=== PATIENT | female | born 1965 | race Caucasian/White ===

== ENCOUNTER → 2017-11-04 13:19 | Outpatient (CLI) | payer MEDICARE, MEDICAID, SELFPAY | PROVIDERS: Family Provider Family Medicine; PCP Family Medicine; Visit Provider Physician Assistant Surgical | DX: R06.02 Shortness of breath (principal) | CPT/HCPCS: 71046 ==

== ENCOUNTER 2018-05-23 10:31 | Emergency (ER) | payer MEDICARE, MEDICAID, SELFPAY ==
[2018-05-23 10:32] VITALS: BP 137/92; PULSE 58; RESP 16; TEMP 36.4; O2SAT 100; BMI 31.6
--- NOTE | 2018-05-23 10:57 | RAD_ITS ---
STUDY: X-RAY - RIGHT HIP REASON FOR EXAM: Female, 52 years old. Pain. TECHNIQUE: 3 views of the hip. COMPARISON: None. FINDINGS: Normal femoral head, neck, intertrochanteric region and visualized proximal femur. Normal acetabulum. Normal hip joint. Normal visualized superior and inferior pubic rami and ischial tuberosities. There is no demonstrated hip fracture. RAD/HIP, UNI W/ Pelvis 2-3 Views IMPRESSION: Normal x-ray examination of the hip. Electronically Signed: Yaw Eckert MD at 12:31 EDT , Service support ,
--- NOTE | 2018-05-23 11:00 | ED.VISSUMM ---
- ER Visit Summary Date of Service: 05/23/18 Chief Complaint: Right leg pain History of Present Illness: The patient is a 52 F who had a mechanical fall on a wet floor 1 week ago. She had right leg pain that improved throughout the week. This morning she woke with worsening pain shooting from her hip down to her foot. Physical Examination: Vital signs unremarkable. Patient lying in bed. She appears uncomfortable but in no distress. Head neck examination was no trauma. Heart is regular rate and rhythm. Lungs sounds clear. Abdomen is soft and nontender. Back examination reveals no midline thoracic or lumbar reducible tenderness over the right posterior pelvis near the sciatic notch. She has no focal thigh or calf tenderness on palpation. She is strong distal pulses and normal sensation. There is no pain at the hip with logroll. Test Results: Pelvis and right hip x-rays are unremarkable. Emergency Department Course and Treatment: Patient was given oxycodone, prednisone, and naproxen. On repeat evaluation she is resting more comfortably. Test results were discussed with patient and family at bedside. I believe her symptoms are secondary to sciatica. She will be given prescriptions for the same medications given here. Treatment Plan: [] Disposition: Discharge Impression: Sciatica This note was generated with [employer] dictation software. It may contain incorrect words, spelling, and punctuation that were not noted in review of the chart prior to signing ED Disposition - Plan for ED Patient: Referrals: Keith Aiken DO [STAFF PHYSICIAN] -
[2018-05-23] MEDS: predniSONE 20 MG Tablet 60 MG PO (11:10)
[2018-05-23] MEDS: Naproxen 500 MG Tablet PO (11:10)
[2018-05-23] MEDS: oxyCODONE 5 MG Tablet PO ×2 (11:10→12:20)
--- NOTE | 2018-05-23 12:52 | ED.DEP ---
ED Disposition - Plan for ED Patient: Disposition: Home or Assisted Living Instructions: ED Sciatica Prescriptions: Oxycodone HCl/Acetaminophen [Percocet 5/325] 1 tablet PO Q6H PRN PRN 3 Days #12 tablet PRN Reason: Pain Naproxen [Naprosyn] 500 mg PO BID PRN PRN #20 tablet PRN Reason: Pain Prednisone 10 mg PO UD #33 tablet Referrals: Keith Aiken DO [STAFF PHYSICIAN] - 1 Week
[2018-05-23 13:03] VITALS: BP 142/72; PULSE 57; RESP 16; O2SAT 96
--- NOTE | 2018-05-23 13:03 | ED.RN ---
DISCHARGE INSTRUCTIONS GIVEN TO AND REVIEWED WITH PATIENT AND FAMILY, ALL DENY QUESTIONS OR CONCERNS AND VOICE UNDERSTANDING OF DISCHARGE INSTRUCTIONS. PT AMBULATES OUT OF ROOM WITH STEADY GAIT.
== END 2018-05-23 13:04 | disposition home or self-care (01) ==
PROVIDERS: Emergency Provider Emergency Medicine
DX: M54.31 Sciatica, right side (principal)
CPT/HCPCS: 73502; 99284

== ENCOUNTER → 2018-07-03 | Outpatient (CLI) | payer MEDICARE, MEDICAID, SELFPAY | END | disposition home or self-care (01) | LOC: LABSPEC 12:43 | PROVIDERS: Referring Provider Family Medicine; Visit Provider Family Medicine | DX: R35.0 Frequency of micturition (principal) | CPT/HCPCS: 87086; 87088 ==

== ENCOUNTER → 2018-09-11 | Outpatient (CLI) | payer MEDICARE, MEDICAID, SELFPAY ==
[2018-09-11 12:51] LABS: Absolute Lymphocyte Count 1.82 X10^3/ul (0.83-4.51); Absolute Neutrophil Count 2.8 X10^3/uL (2.0-7.7); Basophil# 0.03 X10^3/uL; Basophil% 0.6 % (0-1); Eosinophils% 1.9 % (0-5); Hematocrit 38.4 % (37-47); Hemoglobin 12.9 g/dl (12.0-15.0); Lymphocyte # 1.82 X10^3/ul (4.0); Lymphocyte % 35.1 % (19-41); Mean Corp Hgb Conc 33.6 g/gl (32-36); Mean Corpuscular Hgb 30.9 pg (27.0-32.0); Mean Corpuscular Volume 92.1 fL (81-99); Mean Platelet Vol. 13.4 fl (6.2-12.0); Monocyte# 0.45 X10^3/uL; Monocyte% 8.7 % (0-10); Neutrophil # 2.79 X10^3/uL (2.7-7.7); Neutrophil % 53.7 % (47-70); Platelet Count 259 K/mm3 (150-450); RBC Distribution Width CV 13.2 % (11.6-14.6); RBC Distribution Width SD 43.3 fl (35.1-43.9); Red Blood Count 4.17 M/mm3 (4.2-5.4); White Blood Count 5.2 K/mm3 (4.4-11.0)
[2018-09-11 12:53] LABS: POSITIVE COUNT NO; POSITIVE DIFFERENTIAL NO; POSITIVE MORPHOLOGY NO
[2018-09-15 12:29] LABS: Anti-Thyroglobulin AB < 1.0 IU/mL (0.0-0.9); Thyroglobulin, Serum Qt. 186.8 ng/mL (1.5-38.5); Thyroid Peroxidase AB 178 IU/mL (0-34)
== END | disposition home or self-care (01) ==
LOC: MFPLAB 09:40
PROVIDERS: Visit Provider Family Medicine
DX: Z00.00 Encounter for general adult medical examination without abnormal findings (principal); E01.0 Iodine-deficiency related diffuse (endemic) goiter
CPT/HCPCS: 36415; 80053; 80061; 84432; 84439; 84443; 85025; 86376; 86800

== ENCOUNTER → 2018-09-15 | Outpatient (CLI) | payer MEDICARE, MEDICAID, SELFPAY ==
--- NOTE | 2018-09-15 14:55 | US_ITS ---
STUDY: THYROID ULTRASOUND REASON FOR EXAM: Female, 52 years old. Thyromegaly TECHNIQUE: Ultrasound evaluation of the thyroid was performed with real-time and static hendrickson-scale imaging. COMPARISON: None. FINDINGS: Increased vascularity throughout. RIGHT LOBE: The right lobe of the thyroid gland measures 5 x 2.1 x 2.2 cm. There is a heterogeneous echotexture. 3 complex nodules are noted measuring 1.1 x 0.6 x 0.7, 2 x 1.3 x 1.1, and 0.5 x 0.4 x 0.5 cm. LEFT LOBE: The left lobe of the thyroid gland measures 4.5 x 1.7 x 2 cm. There is a heterogeneous echotexture. Complex nodule extending into the isthmus measures 3.1 x 2.4 x 1.7 cm. ISTHMUS: The isthmus measures 0.5 cm. Nodule on the left measured 1 x 1 x 0.7 cm.. The regional lymph nodes are normal. US/Thyroid IMPRESSION: Multinodular goiter with a complex dominant nodule noted on the left. Recommend nuclear medicine for further characterization. Electronically Signed: Deny Zarate MD at 23:04 EDT , Service support ,
== END | disposition home or self-care (01) ==
LOC: US 14:34
PROVIDERS: Family Provider Family Medicine; PCP Family Medicine; Referring Provider Family Medicine; Visit Provider Family Medicine
DX: E01.0 Iodine-deficiency related diffuse (endemic) goiter (principal)
CPT/HCPCS: 76536

== ENCOUNTER → 2018-09-22 | Outpatient (CLI) | payer MEDICARE, MEDICAID, SELFPAY ==
--- NOTE | 2018-09-22 15:51 | BI_ITS ---
MAMMOGRAPHY - BILATERAL SCREENING 3-D TOMOSYNTHESIS REASON FOR EXAM: Female, 52 years old. Bilateral Screening 3-D tomosynthesis PERTINENT HISTORY: No significant family history. TECHNIQUE: 2-D mammograms and 3-D Tomosynthesis of the breast (s) were performed. CAD was performed. COMPARISON: None. FINDINGS: The breast composition is composed of scattered fibroglandular density. Scattered benign calcifications are seen. No dense spiculated masses or suspicious microcalcifications are identified. No architectural distortion is identified. There is no skin thickening or retraction. Scattered well-defined nodular densities in the right breast likely lymph nodes or fibroadenomas. Bilateral well-defined axillary lymphadenopathy. BI/SCREEN MAMM (CAD) W/EDUAR BILAT IMPRESSION: No mammographic signs of malignancy. Routine yearly mammograms recommended. ASSESSMENT CATEGORY: BIRADS Category 1: Negative. A letter regarding these results will be sent to the patient by the facility within 30 days. FOLLOW UP RECOMMENDATION: Yearly follow up mammogram recommended. (A) Approximately 10% of breast cancers are not detected by mammography. A normal mammogram should not delay biopsy of a clinically suspicious abnormality. Electronically Signed: Dwaine Najera MD at 7:51 EDT , Service support ,
== END | disposition home or self-care (01) ==
LOC: OPBI 15:49
PROVIDERS: Family Provider Family Medicine; PCP Family Medicine; Referring Provider Family Medicine; Visit Provider Family Medicine
DX: Z12.31 Encounter for screening mammogram for malignant neoplasm of breast (principal); Z00.00 Encounter for general adult medical examination without abnormal findings; E06.3 Autoimmune thyroiditis; E01.0 Iodine-deficiency related diffuse (endemic) goiter
CPT/HCPCS: 77063; 77067; 80053; 80061; 84439; 84443

== ENCOUNTER → 2018-09-22 | Outpatient (CLI) | payer MEDICARE, MEDICAID, SELFPAY ==
[2018-09-22 18:35] LABS: ALB/GLOB Ratio 1.1 RATIO (0.9-2.4); AST(SGOT) 18 U/L (15-37); Alanine Aminotransfer ALT/SGPT 21 U/L (13-56); Albumin, Serum 3.9 g/dL (3.2-5.0); Alkaline Phosphatase 69 U/L (45-117); Anion Gap 8 (5-15); BUN 16 mg/dL (7-18); BUN/Creat Ratio 20.1 RATIO (10-20); Calcium,Total 8.8 mg/dL (8.5-10.1); Chloride 105 mmol/L (98-107); Cholesterol 212 mg/dL (200); EST Glomerular Filtration Rate 80 mL/min (>60); Est Glom Filt Rate - Afr Amer 97 mL/min (>60); Globulin 3.6 g/dL (2.2-4.2); Glucose 99 mg/dL (74-106); High Density Lipoprotein 47 mg/dL; Potassium 3.7 mmol/L (3.5-5.1); Protein, Total 7.5 g/dL (6.4-8.2); Sodium Level 140 mmol/L (136-145); T4 Free Direct 0.67 ng/dL (0.76-1.46); Thyroid Stim Hormone (TSH) 2.11 uIU/mL (0.358-3.74); Triglycerides 199 mg/dL; Very Low Density Lipoprotein 40 mg/dL (5-40)
== END | disposition home or self-care (01) ==
LOC: MFPLAB 14:56
PROVIDERS: Family Provider Family Medicine; PCP Family Medicine; Referring Provider Family Medicine; Visit Provider Family Medicine
DX: Z00.00 Encounter for general adult medical examination without abnormal findings (principal); E06.3 Autoimmune thyroiditis; E01.0 Iodine-deficiency related diffuse (endemic) goiter
CPT/HCPCS: 80053; 80061; 84439; 84443

== ENCOUNTER → 2018-09-30 | Outpatient (CLI) | payer MEDICARE, MEDICAID, SELFPAY ==
--- NOTE | 2018-09-30 14:15 | ASPS_PTH ---
PATIENT: CODY NORTON LOC: [facility] U#:[id number] AGE/SX: 52/F ROOM: RE09/30/[address]: Dr. Jeromy Martins MD : 1965 BED: DIS: 09/30/2018 SPEC #: [id number] RECD: 10/01/18 08:38 STATUS: KAYLA RADHA #: [id number] KRYSTA: 09/30/18 14:[address]: Jeromy Martins DEPT: CYTOLOGY RECD BY: Wisam Flores ENTERED: 10/01/18 09:31 SP TYPE: ASPIRATION OTHR DR: Dr. Nilesh Doan MD Tissues: A - Thyroid gland, NOS B - Thyroid gland, NOS Procedures: Special Stain Group II Cytology Other HEADER OPERATION: Ultrasound-guided fine needle aspiration bilateral thyroid PRE-OP DIAGNOSIS: Multinodular goiter E04.2 TISSUE SUBMITTED: A - Fine needle aspiration right thyroid (10 slides), B - Fine needle aspiration left thyroid (12 slides) DIAGNOSIS CYTOLOGY A. Fine needle aspiration, right thyroid nodule (smears): Malignant cells consistent with papillary carcinoma. Chronic lymphocytic thyroiditis. B. 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 Abundant colloid consistent with colloid nodule Chronic lymphocytic thyroiditis. AM:jourdan 10/02/18 COMMENT Case has been reviewed in consultation with Dr. Medina who concurs with the above diagnosis. IDC:SJ CYTOLOGY STUDY Slides are reviewed. CYTOLOGY GROSS A - Received are 10 smears labeled with the patient's name and designated per the requisition as FNA right thyroid. Submitted for staining. B - Received are 12 smears labeled with the patient's name and designated per the requisition as FNA left thyroid. Submitted for staining. 10/01/18 TC:0 CPT: 57134 x2
[2018-09-30 14:23] VITALS: BMI 31.6
== END | disposition home or self-care (01) ==
LOC: LABSPEC 10-01 08:44
PROVIDERS: Family Provider Family Medicine; PCP Family Medicine; Referring Provider Surgery; Visit Provider Surgery
DX: E06.3 Autoimmune thyroiditis (principal); E04.2 Nontoxic multinodular goiter
CPT/HCPCS: 88161; 88313

== ENCOUNTER 2018-10-22 05:33 | Day surgery (SDC) | payer MEDICARE, MEDICAID, SELFPAY ==
[2018-10-07 13:44] VITALS: BMI 31.6
--- NOTE | 2018-10-08 09:50 | HP_ITS ---
Intake Vital Signs 10/07/18 Body Mass Index (BMI) 31.6 10/07/18 Height 5 ft 4 in 10/07/18 Weight: 178 lb 10/07/18 Body Mass Index (BMI) 30.5 10/07/18 Blood Pressure 120/79 10/07/18 Blood Pressure Location Rt brachial 10/07/18 Blood Pressure Position Sitting 10/07/18 Respiratory Rate 18 10/07/18 Pulse Rate 52 L 10/07/18 Pulse Source Monitor 10/07/18 Temperature 98.3 F 10/07/18 Temperature Source Oral 10/07/18 Pulse Ox 93 10/07/18 Oxygen Delivery Method room air 09/30/18 Body Mass Index (BMI) 31.6 Intake Visit Reasons: FNA Bilat Thyroid Results Chief Complaint: cough Cider Press Operator Required: No Is patient in pain?: No Allergies acetaminophen [From Vicodin] Allergy (Mild, Verified 10/07/18 13:44) unknown hydrocodone [From Vicodin] Allergy (Mild, Verified 10/07/18 13:44) unknown sulfamethoxazole [From Bactrim] Allergy (Unknown, Verified 10/07/18 13:44) Unknown trimethoprim [From Bactrim] Allergy (Unknown, Verified 10/07/18 13:44) Unknown Medications Naproxen [Naprosyn] 500 mg PO BID PRN PRN #20 tab 05/23/18 [Rx Confirmed 10/07/18] Prednisone 10 mg PO UD #33 tab 05/23/18 [Rx Confirmed 10/07/18] biotin 1 mg capsule 1 mg PO DAILY 09/24/18 [History Confirmed 10/07/18] cetirizine 10 mg capsule 10 mg PO DAILY 09/24/18 [History Confirmed 10/07/18] lorazepam 0.5 mg tablet 1 mg PO ONCE #2 tab 09/24/18 [Rx Confirmed 10/07/18] oxybutynin chloride 5 mg tablet 5 mg PO DAILY 09/24/18 [History Confirmed 10/07/18] PFSH Medical History Thyroid nodule (Acute) Surgical History Hx of tonsillectomy (Acute) History of appendectomy (Acute) History of hysterectomy (Acute) History of cholecystectomy (Acute) Family History Mother Arthritis Hypertension High cholesterol Father Diabetes Heart disease Hypertension Sister Thyroid disorder Social History (Updated 10/08/18 @ 09:51 by Jeromy Martins MD) Smoking Status: Never smoker alcohol intake: never substance use type: does not use caffeine: Yes what type of physical activity do you participate in: swimming frequency: 1-2 times per week HPI HPI HPI: CODY NORTON, is a 52 F who presents to the office today for HPI HPI Surgical H&P: Yes HPI: CODY NORTON, is a 52 F who presents to the office today for Follow-up from a ultrasound-guided fine-needle aspiration of bilateral thyroid nodules. Her fine-needle aspiration results show that she had papillary thyroid cancer on the right side. Patient had her thyroid ultrasound completed at [facility] on 09/15/2018. This showed a 1.1 cm nodule on the right side and a 3.1 cm nodule on the left side. She has not had any pain or discomfort in her neck she has had no previous history of thyroid issues in the past. ROS General General: No weight change, appetite, fatigue, colon cancer, breast cancer or weakness HEENT HEENT: No difficulty swallowing, eye injury, eye surgery, swollen glands or hoarseness Endo Endocrine: No thyroid disease, diabetes mellitus, thyroid cancer, Hair loss, heat intolerance or cold intolerance Skin Skin: No rash or changing moles Musc Musculoskeletal: No back problems, arthritis, rheumatoid arthritis, gout or joint pain Cardio Cardiovascular: No murmur, pacemaker, heart disease, atrial fibrillation, high blood pressure, heart attack, heart stent, palpitations, shortness of breat with exertion or chest pain Psych Psychiatric: No depression, anxiety or hearing voices Resp Respiratory: No shortness of breath, No sleep apnea, No cough, No COPD, No asthma, No emphysema, No wheezing Gastro Gastrointestinal: No abdominal pain, No nausea or vomiting, No diarrhea, No constipation, No blood in stool, No acid reflux, No hemorrhoids, No ulcers, No gallbladder problem, No black,tarry stools Neno Hematologic: No blood thinners, No blood disorders, No bleeding, No anemia, No blood clots Neuro Neurologic: No weakness Exam Const General: no acute distress, well developed, well hydrated Orientation: oriented to person, oriented to place, oriented to time [facility] Head: normocephalic, atraumatic Ears: external ears normal Mouth: moist mucous membranes Other: Thyroid Exam: No hard palpable nodules are identified.No lymphadenopathy is identified. Eyes Sclera: sclerae normal Pupils: normal by confrontation Neck Neck: no lymphadenopathy noted Neck mass: No Thyroid: thyroid normal, symmetrical Chest Chest palpation & inspection: normal inspection of the chest Resp Effort & Inspection: normal respiratory effort Auscultation: clear to auscultation bilaterally Percussion: percussion normal Cardio Rate: regular rate Rhythm: regular rhythm Heart Sounds: no murmurs GI Palpation: soft, no hepatosplenomegaly, no masses, nontender Rectal Exam: other Other: Rectal exam deferred. Extrem General: normal to inspection, no clubbing, cyanosis or edema Assessment & Plan Problems 1. Papillary thyroid carcinoma C73 Plan Patient will need to undergo a total thyroidectomy.Risk benefits to include injury to the parathyroid glands recurrent laryngeal nerves were discussed in great detail.Postoperative hemorrhage blood clots heart attacks pneumonia strokes were also discussed. Patient understood her risk and is willing to proceed. Coding Level of Care Code Off vis,est,level 3 Diagnoses Papillary thyroid carcinoma C73 10/08/18 0951 <Electronically signed by Jeromy sharif MD> Date _ Jeromy Martins MD I have re-examined the patient. There are no clinical changes since date of exam.
--- NOTE | 2018-10-15 16:33 | EKG12_ITS ---
Test Reason : PRE OP Blood Pressure : / mmHG Vent. Rate : 053 BPM Atrial Rate : 053 BPM P-R Int : 162 ms QRS Dur : 092 ms QT Int : 432 ms P-R-T Axes : 023 030 018 degrees QTc Int : 405 ms Sinus bradycardia with occasional Premature ventricular complexes Otherwise normal ECG Confirmed by ALEXIS ORTIZ, SHAISTA ([id number]), map editor SANTHOSH BEAR ([id number]) on 10/19/2018 1:34:19 PM Referred By: Jeromy Martins Confirmed By:RICKIE ESPINOZA MD
[2018-10-22] VITALS (12 sets, daily range): BP systolic 102–134; BP diastolic 44–65; PULSE 41–66; RESP 14–18; TEMP 36.1–37.2; O2SAT 94–100; BMI 31.1
--- NOTE | 2018-10-22 | IMM_PTH ---
PATIENT: CODY NORTON [place] [facility] [id number] AGE/SX: 52/F ROOM: RE10/22/[address]: Dr. Jeromy Martins MD : 1965 BED: DIS: 10/23/2018 SPEC #: [id number] RECD: 10/27/18 07:42 STATUS: KAYLA REMookie #: [id number] KRYSTA: 10/22/18 00:[address]: Jeromy Martins DEPT: IMMUNOHISTOCHEMISTRY RECD BY: Mariel Miranda ENTERED: 10/27/18 07:44 SP TYPE: IMMUNO OTHR DR: MD Dr. Nilesh Small MD Tissues: A - Thyroid gland, NOS B - Lymph node, NOS Procedures: Thyroglobulin (add) CK19 (add) GAL-3 (add) HBME (add) CD56 (initial) PHYSICIAN & INSTITUTION [address] [address] SPECIMEN INFORMATION: Tissue Source: A. Thyroid, B. Central compartment lymph node Clinical Info: Papillary thyroid carcinoma Specimen Number: [id number] A & B CPT code: 15923 x2, 32458 x8 METHODOLOGY: Deparaffinized sections of prefer/formalin-fixed tissue or PAP/DQ stained slides are incubated with monoclonal/polyclonal antibodies/oligonucleotide probes. Localization is made via biotin free immunoperoxidase method. Appropriate controls are performed and reacted as expected. Results on target cell population are indicated in the following table: RESULTS: ANTIBODY / CLONE RESULT Block A1 CD56 (123C3.D5) negative Thyro (2H11+6E1) negative HBME1 (HBME-1) negative GAL3 (9C4) negative CK19 (A53-B/A2.26) negative Block B1 CD56 (123C3.D5) negative Thyro (2H11+6E1) negative HBME1 (HBME-1) negative GAL3 (9C4) negative CK19 (A53-B/A2.26) negative These tests were developed and their performance characteristics determined by [facility]. They may not have been cleared or approved by the U.S. Food and Drug Administration. The FDA has determined that such clearance or approval is not necessary. INTERPRETATION: A. Perithyroidal lymph nodes, biopsy: Six out of 6 lymph nodes negative for carcinoma B. Central compartment lymph node, biopsy: One out of 1 lymph node negative for carcinoma AM:cecelia 10/27/18
[2018-10-22] MEDS: Lactated Ringers 1,000 ML 100 ML IV (06:28)
[2018-10-22] MEDS: Cefazolin 2 GM in 0.9% Normal Saline 100 ML IV (07:15)
--- NOTE | 2018-10-22 07:15 | THYROID_PTH ---
PATIENT: CODY [place]ON [place] [facility] [id number] AGE/SX: 52/F ROOM: RE10/22/[address]: Dr. Jeromy Martins MD : 1965 BED: DIS: 10/23/2018 SPEC #: [id number] RECD: 10/22/18 10:53 STATUS: KAYLA REMookie #: [id number] KRYSTA: 10/22/18 07:[address]: Jeromy Mratins DEPT: SURGICAL PATHOLOGY RECD BY: Wisam Flores ENTERED: 10/22/18 11:15 SP TYPE: THYROID OTHR DR: MD Dr. Nilesh Small MD Tissues: A - Thyroid gland, NOS B - Lymph node, NOS Procedures: Surgery Specimen Level IV Surgery Specimen Level V HEADER OPERATION: Total thyroidectomy PRE-OP DIAGNOSIS: Papillary thyroid carcinoma TISSUE SUBMITTED: A - Thyroid - stitch packer right side, B - Central compartment lymph node MICROSCOPIC DIAGNOSIS A. Total thyroid, thyroidectomy: Papillary thyroid carcinoma. See Cancer check list below. B. Central compartment lymph node, biopsy: 1 out of 1 lymph node negative for metastatic carcinoma. AM:sofya 10/26/18 COMMENT Immunohistochemistry ([id number]) supports the above diagnosis. Case has been reviewed in consultation with Dr. Medina who concurs with the above diagnosis. IDC:SJ THYROID CANCER SUMMARY: Procedure - Total thyroidectomy. Received - fresh in formalin Specimen integrity - intact specimen Specimen size: Right lobe: 4 x 3 x 2.5 cm Left lobe: 3.5 x 3 x 2 cm Isthmus: 2 x 0.5 cm Specimen weight - 26.8 grams Tumor focality - multifocal (bilateral) Dominant tumor: Tumor laterality - right lobe and left lobe Tumor size: Right lobe - 1.8 x 1.3 x 1 cm Left lobe - Largest tumor - 0.5 x 0.4 x 0.3 cm Second largest - 0.2 cm Smallest tumor - 0.1 cm Histologic type: Papillary carcinoma (largest tumor and smaller tumors) Variant - classical and follicular Architecture - classical and follicular Cytomorphology - classical Margins - uninvolved by carcinoma Distance from closest (right anterior margin) - less than 1 mm - Right lobe Distance from closest (leftt posterior margin) - less than 1 mm - Left lobe Tumor capsule - not identified. Lymph-Vascular invasion - not identified Perineural invasion - not identified Extrathyroidal extension - not identified Lymph nodes : Number examined - 7 (inclusive of specimen B) Number involved by carcinoma - 0 Additional pathologic findings - colloid nodules with focal adenomatous and cystic change, Chronic lymphocytic thyroiditis. PATHOLOGIC STAGE: T1b,N0, Mx Note: The largest focus of papillary carcinoma measuring 1.8 cm is present in the right lobe. Three smaller micro carcinomas ranging in size from 5 mm to 1 mm are identified in the left lobe. Case has been reviewed in consultation with Dr. Medina who concurs with the above diagnosis. IDC:SJ The above summary is in compliance with [employer] [place] [employer] (CAP) Cancer Protocols Checklist and [place] [employer] Committee on Cancer (AJCC), Staging Manual, 8th Ed. MICROSCOPIC DESCRIPTION Slides are reviewed. GROSS DESCRIPTION A. Received in fixative is one container labeled with the patient's name and designated total thyroidectomy. The specimen consists of total thyroidectomy specimen weighing 26.8 grams. The right thyroid lobe measures 4 x 3 x 2.5 cm and the left thyroid lobe measures 3.5 x 3 x 2 cm and the isthmus measures 2 x 0.5 cm. Four taylor indurated nodules, possible lymph nodes are noted, measuring 0.5 to 1 cm in greatest dimension. Four possible lymph nodes are noted. Thyroid is inked as follows: posterior surface right lobe, left lobe and isthmus - black; anterior surface right lobe - blue; anterior surface isthmus - yellow; anterior surface left lobe - green. Sections of isthmus revealed a taylor nodule measuring 0.6 cm in diameter. The right lobe revealed a taylor indurated nodule occupying almost the entire right lobe. Sections of thyroid are submitted. Section of the left lobe also reveals taylor multinodular cut surface occupying entire left lobe. A focal hemorrhagic nodule is also noted measuring 1 cm in greatest dimension. The entire specimen is submitted in 20 cassettes as follows: 1 - nodule from possible lymph nodes; 2 - isthmus; 3-12 - right lobe, 3 containing most superior portion and 12 containing most inferior portion, 13 - containing the most superior portion and 21 containing the most inferior portion. The entire specimen is submitted in 21 cassettes. /SJ:sofya 10/23/18 B - Received in fixative is one container labeled with the patient's name and designated central compartment lymph node. The specimen consists of a piece of taylor-pink soft tissue measuring 0.4 x 0.4 x 0.2 cm. / MARY GRACE:jourdan 10/22/18 TC: 0 CPT: 44097, 90616
--- NOTE | 2018-10-22 08:34 | PCM.OPRPT ---
Problem List (1) Papillary carcinoma of thyroid Status: Acute Report of Operation Date of Procedure: 10/22/18 Pre-Operative Diagnosis: Papillary thyroid carcinoma Post-Operative Diagnosis: Same Surgery/Procedure Performed:: Total thyroidectomy for papillary thyroid cancer Type of Anesthesia:: General Anesthesiologist: Yasir Thao Specimen's removed: Total thyroid central compartment lymph nodes Estimated Blood Loss (mL): < 25 cc Fluids Replaced: 800 cc LR Description of Procedure: Patient was brought into the operating room and placed in the supine position. Under excellent general trach intubation the neck was extended and sterilely prepped and draped in usual fashion. Local was injected cervical incision was made. Electrocautery was used to create subplatysmal flaps. Gelpi retractor was placed inside the wound. Midline strap muscles were opened with electrocautery. Starting on the left side I detached the thyroid from the strap muscles and went to the superior pole vessels and took these down with harmonic dissector I then went inferiorly into the middle thyroidal vein down and then went inferior to this into the inferior thyroid vessels down identified the parathyroid glands were both superior and inferior area I rotated the gland from lateral to medial standpoint taking the gland off of Jose's ligament I did not identify the nerve on that side. I took the gland off of the trachea and went to the right side similar fashion went to the superior pole vessels took these down first with a harmonic dissector the middle thyroidal vein down with harmonic dissector I rotated the gland from lateral to medial standpoint taking the gland down identifying the superior parathyroid as I rotated the gland from more lateral to medial I came across a small dark small structure which it was not an entirely convinced was the parathyroid gland but it was directly attached to the thyroid and I inadvertently had taken this off this possibly could have been the inferior parathyroid gland but it was quite small and just a sliver and I did not send it off to pathology for frozen section because I would not of had much of anything to reimplant and I thought that was more important. Patient had a lot of lymph nodes in the inferior aspect of the right side of the thyroid gland I took these up and remove them in their entirety. Once I was done with this dissection the area was pretty clear and no obvious hard lymph nodes were felt or seen. I placed FloSeal into both the left and right side of the thyroid bed. I closed the midline strap muscles with a 2-0 Vicryl. I reimplanted the parathyroid tissue on the right sternocleidomastoid muscle and marked it with 3 small vascular clips 3 small and one medium. Subplatysmal flaps were brought together with a 3-0 Vicryl deep dermals with 3-0 Vicryl then a running 4-0 Monocryl on the skin Dermabond was applied sterile dressings were applied and the patient tolerated the procedure well. - Admit VTE Documentation VTE Present on Admission: No VTE Mechan Device Prophylaxis: SCD's VTE Pharm Prophylaxis ordered?: No Reason prophylaxis not ordered:: Treatment Not Indicated
[2018-10-22] MEDS: BUPIVACAINE LIPOSOME/PF 20 ML VIAL OPERA.SITE (08:44)
[2018-10-22] MEDS: Lactated Ringers 1,000 ML 65 ML IV ×2 (09:31→17:36)
[2018-10-22] MEDS: Calcium Carbonate 500 MG Tablet 1000 MG PO ×2 (11:12→17:38)
[2018-10-22 12:22] LABS: Calcium,Total 8.4 mg/dL (8.5-10.1)
[2018-10-22] MEDS: oxyCODONE 5 MG Tablet PO ×2 (12:29→21:20)
[2018-10-22 15:50] LABS: Calcium,Total 8.4 mg/dL (8.5-10.1)
[2018-10-22] MEDS: HYDROmorphone 0.5 MG/0.5 ML SYRINGE IV (15:55)
[2018-10-23 01:20] VITALS: BP 108/62; PULSE 44; RESP 18; TEMP 37; O2SAT 94
[2018-10-23] MEDS: oxyCODONE 5 MG Tablet PO (01:39)
[2018-10-23 05:20] VITALS: BP 109/57; PULSE 45; RESP 18; TEMP 37.2; O2SAT 94
[2018-10-23] MEDS: Levothyroxine 100 MCG Tablet PO (05:26)
[2018-10-23 06:47] LABS: Calcium,Total 8.3 mg/dL (8.5-10.1)
--- NOTE | 2018-10-23 08:05 | DCINST_ITS ---
Discharge Diet: Light diet - advance as tolerated - If you have questions about your diet instructions, please talk to your doctor. Discharge Activity: May Not Drive - for 1 week or while taking narcotic pain medicine. May shower in (days): 1 Lifting Restrictions: 10 pounds Call your doctor if your incision/area has: Continuous Slow Oozing, Sudden Increased Bleeding, Increased Pain/ Swelling, Increased Redness, Foul Smelling Discharge Call your doctor if you observe: Fever of 101 or Higher Suture Line Care: Avoid Pulling/Pushing, Avoid Pinching/Bending Additional Dressing/Incision Instructions:: Change or remove dressing in 4 days. Leave steri-strips in place for 1 week. Allergies/Adverse Reactions: Allergies acetaminophen [From Vicodin] Allergy (Mild, Verified 10/22/18 06:04) unknown hydrocodone [From Vicodin] Allergy (Mild, Verified 10/22/18 06:04) unknown sulfamethoxazole [From Bactrim] Allergy (Unknown, Verified 10/22/18 06:04) Unknown trimethoprim [From Bactrim] Allergy (Unknown, Verified 10/22/18 06:04) Unknown Medications to take at Discharge biotin 1 mg capsule 1 mg PO DAILY 09/24/18 cetirizine 10 mg capsule 10 mg PO DAILY 09/24/18 oxybutynin chloride 5 mg tablet 10 mg PO DAILY 09/24/18 L.acidoph,Paracasei, B.lactis [Probiotic] 1 ea PO DAILY 10/15/18 Levothyroxine Sodium [Levoxyl] 100 mcg PO DAILY #30 tab 10/22/18 Oxycodone [Oxyir] 10 mg PO Q4H PRN PRN 6 Days #20 tab 10/22/18 Calcium Carbonate [Tums X-Str] 1,000 mg PO BID #30 tab.chew 10/23/18 The following prescriptions were given: Levothyroxine Sodium [Levoxyl] 100 mcg PO DAILY #30 tab Prescription Printed Oxycodone [Oxyir] 10 mg PO Q4H PRN PRN 6 Days #20 tab PRN Reason: Pain Prescription Printed Calcium Carbonate [Tums X-Str] 1,000 mg PO BID #30 tab.chew Prescription Printed Orders to be completed after discharge: 12 Lead EKG [[facility]] Time Frame: 10/15/18, Facility: [facility], Location: Cardiovascular Services Primary Care Physician: Nilesh Doan MD [Primary Care Provider] - Test Results: Test results from this visit will be discussed in further detail at your follow- up appointment, if applicable. Please Follow Up With: Jeromy Martins MD - [phone] When: Call to make an appointment to be seen in about 10 days.
[2018-10-23] MEDS: Calcium Carbonate 500 MG Tablet 1000 MG PO (08:16)
[2018-10-23] MEDS: Tolterodine Tartrate 2 MG CAP.SA PO (08:16)
[2018-10-23 09:09] VITALS: BP 111/53; PULSE 47; RESP 14; TEMP 36.8; O2SAT 96
== END 2018-10-23 08:05 | disposition home or self-care (01) ==
LOC: SDC 05:34 → AC 05:34 → MS3 05:54 → PCU 08:02
PROVIDERS: Family Provider Family Medicine; PCP Family Medicine; Referring Provider Surgery; Visit Provider Surgery
PROC: (CPT 60240; principal; 2018-10-22 07:00)
DX: C73 Malignant neoplasm of thyroid gland (principal)
CPT/HCPCS: 00320; 60240; 36415; 82310; 88305; 88307; 88341; 88342; 93005; J7120; J2405

== ENCOUNTER 2021-08-14 05:54 | Day surgery (SDC) | payer MEDICARE, MEDICAID, SELFPAY ==
[2021-08-14] VITALS (8 sets, daily range): BP systolic 103–144; BP diastolic 56–73; PULSE 53–71; RESP 14–18; TEMP 36–36.7; O2SAT 98–100; BMI 32.9
--- NOTE | 2021-08-14 | COLBX_PTH ---
PATIENT: CODY NORTON LOC: EN U#:[id number] AGE/SX: 55/F ROOM: RE08/14/[address]: Dr. Kyle Montgomery MD : 1965 BED: DIS: 08/14/2021 SPEC #: [id number] RECD: 08/14/21 13:19 STATUS: KAYLA GARCIA #: [id number] KRYSTA: 08/14/21 00:[address]: Kyle Montgomery DEPT: SURGICAL PATHOLOGY RECD BY: Preston Crawley ENTERED: 08/14/21 13:20 SP TYPE: COLON BX GOYO DR: Dr. Nilesh Doan MD Tissues: A - COLON BIOPSY B - Sigmoid colon biopsy C - Rectum, NOS Procedures: Surgery Specimen Level IV HEADER OPERATION: Colonoscopy with biopsies and polypectomy (MAC) PRE-OP DIAGNOSIS: Change in bowel habit TISSUE SUBMITTED: A ? Random colon biopsy, B ? Mid sigmoid polyp, C ? Rectum polyp MICROSCOPIC DIAGNOSIS A. Colon, random biopsy: No pathologic change. B. Mid sigmoid colon polyp, biopsy: Focal changes suggestive of inflammatory polyp. C. Rectal polyp, biopsy: Fragments of hyperplastic polyp. AM:jourdan 08/15/2021 MICROSCOPIC DESCRIPTION Slides are reviewed. GROSS DESCRIPTION A - Received in fixative is one container labeled with the patient's name and designated random colon biopsy. The specimen consists of multiple irregular fragments of light taylor soft tissue that in aggregate measure 1.5 x 0.5 x 0.1 cm. The specimen is totally submitted in one cassette. B - Received in fixative is one container labeled with the patient's name and designated polyp mid sigmoid. The specimen consists of two irregular fragments of light taylor soft tissue that in aggregate measure 0.4 x 0.3 x 0.1 cm. The specimen is totally submitted in one cassette. C - Received in fixative is one container labeled with the patient's name and designated polyp rectum. The specimen consists of multiple irregular fragments of light taylor soft tissue that in aggregate measure 1 x 0.3 x 0.1 cm. The specimen is totally submitted in one cassette. / MARY GRACE:jourdan 08/14/2021 TC:5 CPT: 35277 x3
--- NOTE | 2021-08-14 06:04 | PCM.HP.BLA ---
History and Physical Date of Admission: 08/14/21 Visit Reasons: Change in bowel Habits Chief Complaint: Change in bowel Habits [employer] Required: No Accompanied by: Mother Is patient in pain?: No Allergies acetaminophen [From Vicodin] Allergy (Mild, Verified 07/16/21 08:07) unknown hydrocodone [From Vicodin] Allergy (Mild, Verified 07/16/21 08:07) unknown sulfamethoxazole [From Bactrim] Allergy (Unknown, Verified 07/16/21 08:07) Unknown trimethoprim [From Bactrim] Allergy (Unknown, Verified 07/16/21 08:07) Unknown Medications cetirizine 10 mg capsule 10 mg PO DAILY 09/24/18 [History Confirmed 07/16/21] oxybutynin chloride 5 mg tablet 10 mg PO DAILY 09/24/18 [History Confirmed 07/16/21] L.acidoph, paracasei,B. lactis 1 ea PO DAILY 10/15/18 [History Confirmed 07/16/21] cholecalciferol (vitamin D3) 50 mcg (2,000 unit) capsule 50 mcg PO DAILY 07/16/21 [History Confirmed 07/16/21] levothyroxine 100 mcg tablet 125 mcg PO DAILY tab 07/16/21 [History] PFSH Medical History Diarrhea History of change in bowel patterns Thyroid cancer (~10/2018) Thyroid nodule Surgical History History of appendectomy History of cholecystectomy History of hysterectomy History of thyroidectomy (~10/2018) Hx of tonsillectomy Family History Mother Arthritis Hypertension High cholesterol Father Diabetes Heart disease Hypertension Sister Thyroid disorder Aunt Diabetes Grandfather Heart disease Grandmother CVA (cerebral vascular accident) Diabetes Social History Smoking Status: Never smoker alcohol intake: never substance use type: does not use caffeine: Yes what type of physical activity do you participate in: swimming frequency: 1-2 times per week HPI HPI HPI: CODY NORTON, is a 55 F who presents to the office today for surgical consultation regarding a change of bowel habit. The patient is referred by Dr Nilesh Doan and a written copy my surgical consult recommendations will return to him. The patient has had a 2 to 3-month history of alternating diarrhea and constipation with occasional bright red blood. She is noting cramping and abdominal bloating. She lives with her mother. It is of note that October 22, 2018 Dr. Jeromy Martins performed a total thyroidectomy for papillary thyroid cancer. Central component and lymph node dissection was performed. The patient had total 7 lymph nodes submitted all of them were negative. She has had a previous cholecystectomy and hysterectomy and appendectomy She presents with her mother today. In actual discussion it seems that her symptoms have gone on for longer than just a couple 3 months. She has not any weight loss. She occasionally has some cramping discomfort in her abdomen with defecation. No unexpected weight loss. There is no family history of colon polyps or colon cancer. She is not had any CT or ultrasound imaging ROS General General: No weight change, appetite, fatigue, colon cancer, breast cancer or weakness HEENT HEENT: Yes difficulty swallowing; No eye injury, eye surgery, swollen glands or hoarseness Endo Endocrine: Yes thyroid cancer; No thyroid disease, diabetes mellitus, Hair loss, heat intolerance or cold intolerance Additional Details: History of total thyroidectomy 2018 Skin Skin: No rash or changing moles Breast Breast: No left breast lump, right breast lump, nipple discharge, breast pain, abnormal mammogram, abnormal US or breast enlargement Musc Musculoskeletal: No back problems, arthritis, rheumatoid arthritis, gout or joint pain Cardio Cardiovascular: No murmur, pacemaker, heart disease, atrial fibrillation, high blood pressure, heart attack, heart stent, palpitations, shortness of breat with exertion or chest pain Psych Psychiatric: No depression, anxiety or hearing voices Resp Respiratory: No shortness of breath, No sleep apnea, No cough, No COPD, No asthma, No emphysema and No wheezing Gastro Gastrointestinal: Yes abdominal pain, No nausea or vomiting, Yes diarrhea, Yes constipation, Yes blood in stool, No acid reflux, No hemorrhoids, No ulcers, No gallbladder problem and No black,tarry stools Neno Hematologic: No blood thinners, No blood disorders, No bleeding, No anemia and No blood clots Neuro Neurologic: No system reviewed and no additional complaints, except as documented, No as per HPI, No abnormal gait, No abnormal hearing, No abnormal movements, No abnormal speech, No behavioral changes, No burning sensations, No confusion, No convulsions, No disequilibrium, No dizziness, No localized weakness, No frequent falls, No headache(s), No lack of coordination, No loss of vision, No memory loss, No numbness, No other visual disturbances, No radicular pain, No restless legs, No sensory deficit, No syncope, No tingling, No tremor(s), No weakness and No other Exam Const General: cooperative, comfortable and no acute distress Nutritional Appearance: obese Orientation: alert, awake and oriented x3 HENMT Head: normal to inspection Eyes General: appearance normal, both eyes and all related structures Resp Effort & Inspection: normal respiratory effort Auscultation: clear to auscultation bilaterally Cardio Rate: regular rate Rhythm: regular rhythm GI Palpation: soft Other: Overweight, no hepatosplenomegaly, normal bowel sounds, not pulsatile or expansile Musc Cervical Spine: normal cervical lordosis Skin General: no rashes or lesions noted Neuro General: patient alert and patient awake Extrem General: normal to inspection Psych Appearance: grossly normal Assessment and Plan Assessment and Plan (1) Change in bowel habit: Status: Acute Plan - Dr. Kyle Montgomery MD: Change of bowel habit of undetermined etiology. Previous colonoscopy 5 years ago performed in [facility] without consequence. Recommended the patient a colonoscopy with possible biopsy or polypectomy as indicated. She is aware of the technique, benefit, risk of alternatives. We will utilize monitored anesthesia care. Will utilize a adult scope. Strongly consider random biopsies for possible microcytic colitis. I appreciate the opportunity of assisting with her surgical care. If the colonoscopy is completely unremarkable then might consider a abdominal pelvic CT scan because of the patient's complaint of epigastric and mid abdominal cramping pain with defecation Copy: Dr Nilehs Montgomery M.D., F.A.C.S. I have re-examined the patient. There are no clinical changes since date of exam.
[2021-08-14] MEDS: Lactated Ringers 1,000 ML 15 ML IV (06:05)
--- NOTE | 2021-08-14 07:43 | OP.COLON_ITS ---
Patient Name: Nadya Hogan Procedure Date: 08/14/2021 7:11 AM Date of : 1965 Age: 55 Procedure: Colonoscopy Indications: Clinically significant diarrhea of unexplained origin Providers: Kyle Montgomery MD Medicines: See the Anesthesia note for documentation of the administered medications Patient Profile: Last Colonoscopy: several years ago. Complications: No immediate complications. Procedure: Pre-Anesthesia Assessment: - Prior to the procedure, a History and Physical was performed, and patient medications and allergies were reviewed. The patient's tolerance of previous anesthesia was also reviewed. The risks and benefits of the procedure and the sedation options and risks were discussed with the patient. All questions were answered, and informed consent was obtained. Prior Anticoagulants: The patient has taken no previous anticoagulant or antiplatelet agents. ASA Grade Assessment: II - A patient with mild systemic disease. After reviewing the risks and benefits, the patient was deemed in satisfactory condition to undergo the procedure. After I obtained informed consent, the scope was passed under direct vision. Throughout the procedure, the patient's blood pressure, pulse, and oxygen saturations were monitored continuously. The adult colonoscope was introduced through the anus and advanced to the cecum, identified by appendiceal orifice and ileocecal valve. The colonoscopy was performed without difficulty. The patient tolerated the procedure well. The quality of the bowel preparation was good. The ileocecal valve and the appendiceal orifice were photographed. Scope In: 7:22:55 AM Scope Withdrawal Time 0 hours 7 minutes 52 seconds Scope Out: 7:36:16 AM Total Procedure Duration Time 0 hours 13 minutes 21 seconds Findings: The digital rectal exam findings include non-thrombosed external hemorrhoids, non-thrombosed internal hemorrhoids and internal hemorrhoids that prolapse with straining, but require manual replacement into the anal canal (Grade III). A 7 mm polyp was found in the mid sigmoid colon. The polyp was sessile. The polyp was removed with a cold biopsy forceps. Resection and retrieval were complete. A 5 mm polyp was found in the rectum. The polyp was sessile. The polyp was removed with a cold biopsy forceps. Resection and retrieval were complete. Scattered diverticula were found in the sigmoid colon. Biopsies for histology were taken with a cold forceps from the entire colon for evaluation of microscopic colitis. Impression: - Non-thrombosed external hemorrhoids, non-thrombosed internal hemorrhoids and internal hemorrhoids that prolapse with straining, but require manual replacement into the anal canal (Grade III) found on digital rectal exam. - One 7 mm polyp in the mid sigmoid colon, removed with a cold biopsy forceps. Resected and retrieved. - One 5 mm polyp in the rectum, removed with a cold biopsy forceps. Resected and retrieved. - Diverticulosis in the sigmoid colon. - Biopsies were taken with a cold forceps from the entire colon for evaluation of microscopic colitis. Recommendation: - Discharge patient to home. - Resume previous diet. - Continue present medications. - Repeat colonoscopy in 5 years for surveillance based on pathology results. - Telephone my office for pathology results in 1 week. Pt has very lax abdomen and lax anal tone--lightly contributing to motility issues. Procedure Code(s): --- Professional --- 09431, Colonoscopy, flexible; with biopsy, single or multiple Diagnosis Code(s): --- Professional --- K64.2, Third degree hemorrhoids K64.4, Residual hemorrhoidal skin tags D12.5, Benign neoplasm of sigmoid colon K62.1, Rectal polyp R19.7, Diarrhea, unspecified K57.30, Diverticulosis of large intestine without perforation or abscess without bleeding CPT copyright 2017 [employer]. All rights reserved. The codes documented in this report are preliminary and upon insurance follow up representative review may be revised to meet current compliance requirements. Kyle Montgomery MD 08/14/2021 7:43:03 AM This report has been signed electronically. Number of Addenda: 0 Note Initiated On: 08/14/2021 7:11 AM
--- NOTE | 2021-08-14 07:44 | OP.CCLET_ITS ---
08/14/2021 Nilesh Doan [address] [place] [address] Re : Colonoscopy procedure for Nadya Hogan Dear Dr. Doan This procedure was performed on Saturday, August 14, 2021. My impressions and recommendations are as follows: Impressions : - Non-thrombosed external hemorrhoids, non-thrombosed internal hemorrhoids and internal hemorrhoids that prolapse with straining, but require manual replacement into the anal canal (Grade III) found on digital rectal exam. - One 7 mm polyp in the mid sigmoid colon, removed with a cold biopsy forceps. Resected and retrieved. - One 5 mm polyp in the rectum, removed with a cold biopsy forceps. Resected and retrieved. - Diverticulosis in the sigmoid colon. - Biopsies were taken with a cold forceps from the entire colon for evaluation of microscopic colitis. Recommendations : - Discharge patient to home. - Resume previous diet. - Continue present medications. - Repeat colonoscopy in 5 years for surveillance based on pathology results. - Telephone my office for pathology results in 1 week. Pt has very lax abdomen and lax anal tone--lightly contributing to motility issues. My findings are described in the full procedure note, which is enclosed. If I can be of further assistance, please feel free to contact me at Doctor phone number(s): Work: . Sincerely, Kyle Montgomery MD 08/14/2021 7:43:03 AM This report has been signed electronically.
== END 2021-08-14 08:27 | disposition home or self-care (01) ==
LOC: EN 05:55 → AC 05:56
PROVIDERS: PCP Family Medicine; Referring Provider Family Medicine; Visit Provider Surgery
PROC: 0DJD8ZZ Inspection of Lower Intestinal Tract, Via Natural or Artificial Opening Endoscopic (ICD-10-PCS; CPT 45378; principal; 2021-08-14 06:55)
DX: K63.5 Polyp of colon (principal); K62.1 Rectal polyp; Z85.850 Personal history of malignant neoplasm of thyroid; Z90.49 Acquired absence of other specified parts of digestive tract; K64.2 Third degree hemorrhoids; K64.4 Residual hemorrhoidal skin tags; K57.30 Diverticulosis of large intestine without perforation or abscess without bleeding
CPT/HCPCS: 45380; 88305; J7120; J2405

== ENCOUNTER → 2021-11-15 | Outpatient (CLI) | payer MEDICARE, MEDICAID, SELFPAY ==
--- NOTE | 2021-11-15 09:39 | RAD_ITS ---
STUDY: X-RAY - RIGHT FOOT CLINICAL: Lateral right foot pain for several weeks. TECHNIQUE: 3 view(s) of the foot. COMPARISON: None. FINDINGS: There is a plantar calcaneal enthesophyte. Otherwise, unremarkable talus, calcaneus, and tarsal bones. Normal visualized subtalar, talonavicular, calcaneocuboid, tarsal and tarsometatarsal articulations. Normal metatarsi. Normal metatarsophalangeal joint of the great toe. Normal tibial and fibular sesamoid bones. There is a bipartite fibular sesamoid. Normal interphalangeal joint of the great toe. Normal phalanges of the great toe. Normal second through fifth metatarsophalangeal joints. Normal interphalangeal joints and phalanges of the lesser toes. The soft tissue structures are unremarkable. RAD/Foot min 3 Views IMPRESSION: Plantar calcaneal enthesophyte. Otherwise, unremarkable x-ray examination of the right foot. Electronically Signed: Jimy Salazar MD at 14:56 EDT ,
== END | disposition home or self-care (01) ==
LOC: MTRAD 09:38
PROVIDERS: PCP Family Medicine; Referring Provider Family Medicine; Visit Provider Family Medicine
DX: M79.671 Pain in right foot (principal)
CPT/HCPCS: 73630

== ENCOUNTER → 2021-11-22 | Outpatient (CLI) | payer MEDICARE, MEDICAID, SELFPAY ==
--- NOTE | 2021-11-22 09:40 | RAD_ITS ---
EXAM: DOUBLE CONTRASTED ESOPHAGRAM. INDICATION: 55-year-old female presenting with dysphagia. TECHNIQUE: Standard esophagram with barium and effervescent capsules in addition to a barium pill. Dose area product: .92.71 mGy Fluoroscopy time: 129 seconds. FINDINGS: Swallowing of the barium pill demonstrated delayed transit at the cervical esophagus and at the gastroesophageal junction, this was relieved by increased water intake. Unremarkable transit of the contrast bolus through the oral cavity. Unremarkable transit from the oral cavity into the esophagus, no evidence of laryngeal penetration or aspiration is seen. Unremarkable transit of the contrast bolus through the esophagus. Normal esophageal motility was observed. The esophagus and visualized stomach a normal single contrast appearance. Air contrast portion contrast shows esophagus and visualized stomach with normal mucosal features in each segment. RAD/Esophagus Dual Contrast IMPRESSION: Normal double contrast esophagram. No evidence of laryngeal penetration or aspiration. Delayed transit of barium pill at the cervical esophagus and at the gastroesophageal junction. Electronically Signed: Tomás Valente MD at 10:33 EDT ,
== END | disposition home or self-care (01) ==
LOC: RAD 09:20
PROVIDERS: PCP Family Medicine; Referring Provider Family Medicine; Visit Provider Family Medicine
DX: R13.10 Dysphagia, unspecified (principal)
CPT/HCPCS: 74221

== ENCOUNTER → 2021-12-06 | Outpatient (CLI) | payer MEDICARE, MEDICAID, SELFPAY ==
[2021-12-06 18:46] LABS: ALB/GLOB Ratio 0.9 RATIO (0.9-2.4); AST(SGOT) 31 U/L (15-37); Alanine Aminotransfer ALT/SGPT 41 U/L (13-56); Albumin, Serum 3.8 g/dL (3.2-5.0); Alkaline Phosphatase 106 U/L (45-117); Anion Gap 9 (5-15); BUN 17 mg/dL (7-18); BUN/Creat Ratio 23.1 RATIO (10-20); Calcium,Total 9.1 mg/dL (8.5-10.1); Chloride 108 mmol/L (98-107); Creatinine, Serum 0.74 mg/dL (0.55-1.02); EST Glomerular Filtration Rate 87 mL/min (>60); Est Glom Filt Rate - Afr Amer 105 mL/min (>60); Globulin 4.3 g/dL (2.2-4.2); Glucose 92 mg/dL (74-106); Magnesium 2.2 mg/dL (1.6-2.6); Potassium 3.9 mmol/L (3.5-5.1); Protein, Total 8.1 g/dL (6.4-8.2); Sodium Level 141 mmol/L (136-145); T4 Free Direct 1.36 ng/dL (0.76-1.46); Thyroid Stim Hormone (TSH) 0.01 uIU/mL (0.358-3.74)
[2021-12-12 10:18] LABS: Anti-Thyroglobulin AB < 1.0 IU/mL (0.0-0.9); Thyroglobulin, Serum Qt. 0.1 ng/mL (1.5-38.5)
[2021-12-12 10:33] LABS: Pancreatic Elastase, Fecal 146 (>200)
[2021-12-12 15:43] LABS: Fats, Neutral Normal (.); Fats, Total Normal (.)
== END | disposition home or self-care (01) ==
PROVIDERS: PCP Family Medicine; Referring Provider Family Medicine; Visit Provider Family Medicine
DX: K52.9 Noninfective gastroenteritis and colitis, unspecified (principal); Z85.850 Personal history of malignant neoplasm of thyroid
CPT/HCPCS: 36415; 80053; 82653; 82705; 83630; 83735; 84432; 84439; 84443; 86800; 87493; 87506

== ENCOUNTER → 2021-12-11 | Outpatient (CLI) | payer MEDICARE, MEDICAID, SELFPAY ==
--- NOTE | 2021-12-11 14:31 | ST.MBS ---
Modified Barium Swallow - Patient Information Study Date: 12/11/21 Study Time: 13:00 Direct Billable Minutes: 85 Total Minutes procedure & reportin Diagnosis: Dysphagia (R13.10), Papillary carcinoma of thyroid (C73) Referring Physician: Nilesh Doan Reason for Referral: Objectively assess swallow function, risk for aspiration, and determine recommendations for least restrictive diet textures and compensatory strategies to improve safety of swallow. Medical History: Nadya Hogan is a 55-year-old female referred for MBSS from PCP, Dr. Doan, due to the patient reporting swallowing difficulty. Her PMH includes thyroid cancer s/p thyroidectomy and radiation therapy (radiation pill per pt's sister) (onset 10/2018), bronchitis, GERD, and shortness of breath at rest. She has a recent barium esophagram on 11/22/2021 revealing delayed transit of barium tablet through the cervical esophagus and at the gastroesophageal junction, but overall normal esophagram. 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 Nadya is a slow eater. She has trouble swallowing food and drink about every meal. Swallowing difficulty is characterized by the sensation of food/drink caught in her throat. At times, she has to cough when she eats and drinks, especially if she feels a drink goes down the wrong way per patient. Any foods can give her difficulty swallowing. She avoids tough meats. She has had swallowing difficulty since ~2 months before her thyroid cancer diagnosis. She has a history of reflux and was started on omeprazole ~2 weeks ago. Current Diet Ordered: Regular textures with soft meats / Thin liquids Dentition: Upper Dentures, Lower Dentures Mental Status: WNL - Some difficulty providing history - able to follow commands for evaluation WNL. Respiratory Status: Oxygenating on Room Air - Penetration-Aspiration Scale Penetration-Aspiration Scale: OBJECTIVE ASSESSMENT OF SWALLOW FUNCTION (QUANTITATIVE ? PER TRIAL): PENETRATION / ASPIRATION SCALE (REHMAN): 1 = does not enter airway 2 = enters airway/above vocal folds/ejected 3 = enters airway/above vocal folds/not ejected 4 = enters airway/contacts vocal folds/ejected 5 = enters airway/contacts vocal folds/not ejected 6 = enters airway/below vocal folds/ejected 7 = enters airway/below vocal folds/not ejected despite effort 8 = enters airway/below vocal folds/no effort VIDEOFLOROSCOPIC SCALE SCORE (REHMAN): Grade I = aspiration of material that has penetrated into the laryngeal vestibule, intact cough reflex Grade II = aspiration < 10 % of the bolus, intact cough reflex Grade III = aspiration of < 10 % of the bolus, reduced cough reflex or aspiration of > 10 % of the bolus, intact cough reflex Grade IV = aspiration of > 10 % of the bolus, reduced cough reflex - Penetration-Aspiration Scale Score Thin Liquid via teaspoon Result: 1= does not enter airway Thin Liquid via teaspoon Trial 2 Result: 1= does not enter airway Thin Liquid via sequential sips from cup Result: 1= does not enter airway Thin Liquid via small single sip from cup Result: 1= does not enter airway [place] Thick Liquid via small single sip from cup Result: 1= does not enter airway [place] Thick Liquid via small single sip from cup Result: 1= does not enter airway Pudding via teaspoon with esophageal screen Result: 1= does not enter airway Thin liquid wash via cup Result: 1= does not enter airway - minimally effective in decreasing esophageal retention in middle esophagus 1/2 Cookie Result: 1= does not enter airway Thin Liquid via single sip from straw Result: 1= does not enter airway - Oral Phase Labial Seal: No Labial Escape Tongue Control During Bolus Hold: Cohesive bolus between tongue to palatal seal Bolus Preparation/Mastication: Slow prolonged chewing/mashing with complete recollection Bolus Transport/Lingual Motion: Repetitive/disorganized tongue motion - and slowed tongue motion for A-P transport Oral Residue: Residue collection on oral structures - Pharyngeal Phase Initiation of Pharyngeal Swallow: Bolus head in valleculae Soft Palate Elevation: No bolus between soft palate and pharyngeal wall Laryngeal Elevation: Comp. Superior move thyroid cart w/comp. apprx arytenoid cart-epig pet Anterior Hyoid Excursion: Partial anterior movement Epiglottic Movement: Partial inversion Laryngeal Vestibule Closure at Height of Swallow: Complete; no air/contrast in laryngeal vestibule Pharyngeal Stripping Wave: Present - complete Pharyngoesophageal Segment Opening: Complete distension and complete duration; no obstruction of flow Tongue Base Retraction: Narrow column of contrast between tongue base & post. pharyngeal wall Pharyngeal Residue: Collection of residue within or on pharyngeal structures - Esophageal Phase Esophageal Clearance: Esophageal retention w/ retrograde flow below pharyngoesophageal seg. - Treatment Strategies Effects of treatment strategies attemped:: Liquid wash = minimally effective in clearing esophageal retention, effective in clearing oral residue - Diagnosis/Impression Diagnosis: Mild oropharyngeal phase dysphagia (R13.12) Impression: The oral phase is primarily marked by... -Slowed and repetitive tongue motion for A-P transport. -Prolonged, but adequate mastication abilities with cookie trial. -Mild oral residue after the swallow, which mostly cleared with independent initiation of a second swallow. Liquid wash effectively cleared oral residue. The pharyngeal phase is primarily marked by... -Mildly decreased anterior hyoid excursion. -Mildly decreased tongue base retraction with resulting trace to mild pharyngeal residues in the vallecula after the swallow. -No laryngeal penetration or aspiration observed during the study. The esophageal phase is primarily marked by... -Esophageal retention of pudding in mid esophagus with retrograde flow remaining well below UES. This esophageal retention had minimally improved clearance when provided thin liquid wash. -CP bar present at the level of C-5, which did not appear to impact bolus clearance through the UES. - Recommendations Diet: Thin Liquids - Easy to Chew textures (IDDSI Level 7) Compensatory Strategies: Small Bites, Small Sips, Slow Rate - sips one at a time, Alternate bites/solids and sips/liquids, Sitting upright, Remain sitting upright for 30 minutes after PO intake, Assist with verbal cues to use recommended strategies Supervision: Assist as needed - Pt lives with mother, who can provide the pt cues as needed per sister, Stacey. Recommend Repeat Modified Barium Swallow: Yes - Will recommend the patient for yearly MBSS to objectively assess swallow function and aspiration risk. The patient is at risk for worsening dysphagia s/p radiation treatment. Need for Skilled Speech Therapy Services: Yes Comment: Will recommend the patient for outpatient dysphagia therapy to address mild deficits in oropharyngeal swallow function. Will recommend the patient for oropharyngeal strengthening to improve lingual strength/coordination, anterior hyoid excursion, and tongue base retraction (lingual resistance exercises, Melisa, CTAR). The patient would benefit from thorough education regarding diet recommendations and recommended compensatory strategies. Will recommend completion of exercise program routinely in upcoming years to decrease risk for worsening swallow function and aspiration risk s/p radiation. Recommended Referrals: GI Consult - Keep GI consult that has been placed for Dr. Sanchez Education Completed: 1. Described result of evaluation., 2. Pt understands evaluation & agrees with goals and treatment plan., 4. Family/caregivers understand evaluation & agree w/ goals & tx plan., 7. Pt requires further education on strategies & risks. - Status Active ST Patient: Active - Contact Information [facility] Speech Therapy:: Aminata Soares M.A. [facility]-ELECTRICIAN CHIEF Speech-Language Pathologist [place] [address] [place] [address] [email or web address] [phone] 12/11/21 14:43
== END | disposition home or self-care (01) ==
LOC: RAD 12:48
PROVIDERS: PCP Family Medicine; Referring Provider Family Medicine; Visit Provider Family Medicine
DX: R13.10 Dysphagia, unspecified (principal)
CPT/HCPCS: 74230; 92611

== ENCOUNTER 2022-01-21 11:30 | Outpatient (RCR) | payer MEDICARE, MEDICAID, SELFPAY ==
--- NOTE | 2021-12-24 11:48 | ST ---
MBSS 12/11/2021 Diagnosis, Impressions, and Recommendations Diagnosis/Impression Diagnosis: Mild oropharyngeal phase dysphagia (R13.12) Impression: The oral phase is primarily marked by... -Slowed and repetitive tongue motion for A-P transport. -Prolonged, but adequate mastication abilities with cookie trial. -Mild oral residue after the swallow, which mostly cleared with independent initiation of a second swallow. Liquid wash effectively cleared oral residue. The pharyngeal phase is primarily marked by... -Mildly decreased anterior hyoid excursion. -Mildly decreased tongue base retraction with resulting trace to mild pharyngeal residues in the vallecula after the swallow. -No laryngeal penetration or aspiration observed during the study. The esophageal phase is primarily marked by... -Esophageal retention of pudding in mid esophagus with retrograde flow remaining well below UES. This esophageal retention had minimally improved clearance when provided thin liquid wash. -CP bar present at the level of C-5, which did not appear to impact bolus clearance through the UES. - Recommendations Diet: Thin Liquids - Easy to Chew textures (IDDSI Level 7) Compensatory Strategies: Small Bites, Small Sips, Slow Rate - sips one at a time, Alternate bites/solids and sips/liquids, Sitting upright, Remain sitting upright for 30 minutes after PO intake, Assist with verbal cues to use recommended strategies Supervision: Assist as needed - Pt lives with mother, who can provide the pt cues as needed per sister, Stacey. Recommend Repeat Modified Barium Swallow: Yes - Will recommend the patient for yearly MBSS to objectively assess swallow function and aspiration risk. The patient is at risk for worsening dysphagia s/p radiation treatment. Need for Skilled Speech Therapy Services: Yes Comment: Will recommend the patient for outpatient dysphagia therapy to address mild deficits in oropharyngeal swallow function. Will recommend the patient for oropharyngeal strengthening to improve lingual strength/coordination, anterior hyoid excursion, and tongue base retraction (lingual resistance exercises, Melisa, CTAR). The patient would benefit from thorough education regarding diet recommendations and recommended compensatory strategies. Will recommend completion of exercise program routinely in upcoming years to decrease risk for worsening swallow function and aspiration risk s/p radiation. Recommended Referrals: GI Consult - Keep GI consult that has been placed for Dr. Sanchez Education Completed: 1. Described result of evaluation., 2. Pt understands evaluation & agrees with goals and treatment plan., 4. Family/caregivers understand evaluation & agree w/ goals & tx plan., 7. Pt requires further education on strategies & risks. - Contact Information [facility] Speech Therapy:: Aminata Soares M.A. [facility]-MATERIAL INSPECTOR Speech-Language Pathologist [facility] [address] [place] [address] [email or web address] [phone]
--- NOTE | 2021-12-24 12:02 | HP.SP.EVAL ---
History - History Date of Eval: 12/24/21 Other Relevant Medical History/Diagnoses/Surgery: Nadya Hogan is a 55-year-old female referred for outpatient dysphagia therapy from PCP, Dr. Doan, following MBSS completed on 12/11/21 revealing mild oropharyngeal phase dysphagia and recommending easy to chew textures / thin liquids with use of compensatory strategies to decrease risk for aspiration. Her PMH includes thyroid cancer s/p thyroidectomy and radiation therapy (radiation pill per pt's sister) (onset 10/2018), bronchitis, GERD, and shortness of breath at rest. She has also had a recent barium esophagram on 11/22/2021 revealing delayed transit of barium tablet through the cervical esophagus and at the gastroesophageal junction, but overall normal esophagram. She has trouble swallowing food and drink about every meal; however, it is somewhat improved with increased use of liquids at meals after MBSS. Swallowing difficulty is characterized by the sensation of food/drink caught in her throat. At times, she has to cough when she eats and drinks, especially if she feels a drink goes down the wrong way per patient. Any foods can give her difficulty swallowing. She avoids tough meats. She has had swallowing difficulty since ~2 months before her thyroid cancer diagnosis. Smoking Status: Never smoker Hx Smoking: No Hx Tobacco Use: No - Pain Is pain an issue with your current prescribed condition?: No Patient Allergies - Allergies Allergies hydrocodone [From Vicodin] Allergy (Mild, Verified 12/12/21 09:33) Rash sulfamethoxazole [From Bactrim] Allergy (Unknown, Verified 12/12/21 09:33) Unknown trimethoprim [From Bactrim] Allergy (Unknown, Verified 12/12/21 09:33) Unknown Subjective Dysphagia - Symptoms Reported Symptoms/Problems with: Coughing, Difficulty Swallowing Solids, Food gets stuck, Xerostomia Other: recent trouble swallowing frosting - Current Diet Solids Other: Easy to Chew textures - Current Diet Liquids Current Liquids: Thin Objective Dysphagia - Administered by Administered by: Self - Thin Liquids Administred via: Cup Oral Transit: WNL Bolus clearance: fully cleared Cough: none observed/unable to assess Pharyngeal phase: immediate laryngeal elevation - Pureed Administered via: Spoon Oral Transit: WNL Bolus clearance: fully cleared Cough: none observed/unable to assess - Regular Oral Preparation: WNL Oral Transit: WNL Bolus clearance: significant clearance/minimal residue Cough: delayed Comments: Trialed rice krispy treat due to the MOLECULAR GENETIC PATHOLOGIST wanting to trial a food that is adhesive with patient reporting difficulty swallowing frosting. Pt reported sensation of pharyngeal retention following 2/3 trials and required liquid wash to clear the sensation. Delayed cough following 1 trial. Trialed regular textured cookie with prolonged, but adequate mastication, no overt s/s of aspiration with 3/3 trials; however, delayed coughing and sensation of stomach pressure/discomfort after completion of trials. - Swallowing Impairment Contributing Factors to Swallowing Impairment: Impaired Oral-Pharyngeal Transport Other: oral residue, suspect pharyngeal residue d/t sensation of retention - Impact Impact on Safety & Functioning: Risk for Aspiration - Recommendations Swallowing Treatment: Yes - Diet Texture Recommendations Solids: Easy to Chew (Level 7) Liquids: Thin (Level 0) - Safety Saftey Precautions/Swallowing Recommendations (Check all that Apply): Upright Position at Least 30 Minutes After Meals, Small Sips & Bites when Eating, Alternate Liquids & Solids Other: slow rate, sips one at a time - Results Swallowing Within Normal Limits: No Swallowing Diagnosis: Oropharyngeal Phase Dysphagia (R13.12) Severity: Mild Objective Oral Motor - Oral Motor Comments Comments: Jaw opening 48mm. - Respiratory Status Respiratory Status: Room Air APPRENTICE ARCHITECT - V Trigeminal Nerve V Trigeminal Nerve Response: Intact - VII Facial Nerve VII Facial Nerve Result: Intact - X Vagus Nerve X Vagus Nerve Result: Intact - XII Hypoglossal Nerve XII Hypoglossal Nerve Result: Impaired Comment:: Mild tongue weakness in all directions. Modified Barium Results Hx MBS Report Entered: Yes MBS Results (from prior exam): 12/24/21 11:48 Speech Therapy by Aminata Soares [facility] [place] 12/11/2021 Diagnosis, Impressions, and Recommendations Diagnosis/Impression Diagnosis: Mild oropharyngeal phase dysphagia (R13.12) Impression: The oral phase is primarily marked by... -Slowed and repetitive tongue motion for A-P transport. -Prolonged, but adequate mastication abilities with cookie trial. -Mild oral residue after the swallow, which mostly cleared with independent initiation of a second swallow. Liquid wash effectively cleared oral residue. The pharyngeal phase is primarily marked by... -Mildly decreased anterior hyoid excursion. -Mildly decreased tongue base retraction with resulting trace to mild pharyngeal residues in the vallecula after the swallow. -No laryngeal penetration or aspiration observed during the study. The esophageal phase is primarily marked by... -Esophageal retention of pudding in mid esophagus with retrograde flow remaining well below UES. This esophageal retention had minimally improved clearance when provided thin liquid wash. -CP bar present at the level of C-5, which did not appear to impact bolus clearance through the UES. - Recommendations Diet: Thin Liquids - Easy to Chew textures (IDDSI Level 7) Compensatory Strategies: Small Bites, Small Sips, Slow Rate - sips one at a time, Alternate bites/solids and sips/liquids, Sitting upright, Remain sitting upright for 30 minutes after PO intake, Assist with verbal cues to use recommended strategies Supervision: Assist as needed - Pt lives with mother, who can provide the pt cues as needed per sister, Stacey. Recommend Repeat Modified Barium Swallow: Yes - Will recommend the patient for yearly MBSS to objectively assess swallow function and aspiration risk. The patient is at risk for worsening dysphagia s/p radiation treatment. Need for Skilled Speech Therapy Services: Yes Comment: Will recommend the patient for outpatient dysphagia therapy to address mild deficits in oropharyngeal swallow function. Will recommend the patient for oropharyngeal strengthening to improve lingual strength/coordination, anterior hyoid excursion, and tongue base retraction (lingual resistance exercises, Melisa, CTAR). The patient would benefit from thorough education regarding diet recommendations and recommended compensatory strategies. Will recommend completion of exercise program routinely in upcoming years to decrease risk for worsening swallow function and aspiration risk s/p radiation. Recommended Referrals: GI Consult - Keep GI consult that has been placed for Dr. Sanchez Education Completed: 1. Described result of evaluation., 2. Pt understands evaluation & agrees with goals and treatment plan., 4. Family/caregivers understand evaluation & agree w/ goals & tx plan., 7. Pt requires further education on strategies & risks. - Contact Information [facility] Speech Therapy:: Aminata Soares M.A. [facility]-MOLECULAR GENETIC PATHOLOGIST Speech-Language Pathologist [facility] [address] [place] [address] [email or web address] [phone] Initialized on 12/24/21 11:48 - END OF NOTE FOIS - Functional Oral Intake Scale Total oral diet with multiple consistencies, but requiring special preparation or compensations: Level 5 Plan - Plan Plan: Will recommend the patient for skilled outpatient dysphagia therapy to to address mild oropharyngeal dysphagia. Speech therapy POC to include further education re: oropharyngeal exercise program, diet texture recommendations, aspiration precautions, and compensatory strategies to decrease risk for aspiration. Additionally, will provide ongoing assessment of diet tolerance. Without skilled ST services, the patient is at increased risk for aspiration. - Recommendations MBS: No Treatment Warranted: Yes Treatment Warranted: Dysphagia Comment: Patient reports she is still awaiting call from Dr. Sanchez's office regarding GI consult. MOLECULAR GENETIC PATHOLOGIST recommended continuing with consult and reaching out to the office to initiate a visit due to stomach discomfort after limited trials and esophageal retention from MBSS 12/11/2021. - Progress Prognosis: Good - Frequency Frequency: 1x/Week Duration: 4-6 Weeks - Goals that are Established Determination:: Goals will be added/modified as deemed necessary and appropriate. Therapy will be discontinued when results of re-evaluation indicate therapy is no longer needed or lack of progress has been documented. - Goal #1-5 Goal #1: The patient will consume least restrictive diet textures without overt s/s of aspiration with minimal verbal cues to decrease risk for aspiration. Goal #2: The patient will complete an oropharyngeal exercise program (Melisa, lingual resistance upwards and outwards, CTAR) with minimal verbal cues to improve strength, ROM, and coordination of swallowing mechanism. Goal #3: The patient will demonstrate use or verbalize awareness of compensatory strategies to decrease risk for aspiration with minimal verbal cues. Education - Patient has Indicated that the Following Identified Educational Needs: None The Patient has indicated that they have no educational or learning abilities that may effect their care.: Yes - Patient Instruction Patient Education: Diagnosis, Treatment Plan, Goals, Safety Precautions, Diet Level, Home Exercise Program Other Education: Provided training in oropharyngeal exercise program to promote improve tongue base retraction, lingual control, and airway closure during the swallow (Melisa, lingual resistance upwards and outwards, CTAR). She completed return demonstration of the following exercises X5-10 repetitions with minimal cues and modeling from MOLECULAR GENETIC PATHOLOGIST. Person Taught: Patient, Family Teaching Method: Discussion, Demonstration, Handout Response to teaching: Return demonstration, Verbalize understanding, Reinforcement needed
--- NOTE | 2022-04-08 13:04 | HP.SP.DC ---
Discharge Summary - Discharged: Discharge: Nadya Hogan was evaluated for dysphagia on 12/24/2021 following an MBSS on 12/11/2021, which recommended Thin Liquids - Easy to Chew textures (IDDSI Level 7) with use of aspiration precautions with follow up dysphagia treatment to address swallowing issues s/p thyroid cancer treated with radioactive iodine. Pt participated in 3 sessions to train in oropharyngeal exercise program and to train in use of aspiration precautions. Pt currently independent with home exercise program and strategies. She will be discharged from at this time.
== END 2022-01-21 19:00 | disposition home or self-care (01) ==
LOC: SP 11:30
PROVIDERS: PCP Family Medicine; Referring Provider Family Medicine; Visit Provider Family Medicine
DX: R13.12 Dysphagia, oropharyngeal phase (principal); C73 Malignant neoplasm of thyroid gland
CPT/HCPCS: 92526; 92610

== ENCOUNTER → 2022-03-28 | Outpatient (CLI) | payer MEDICARE, MEDICAID, SELFPAY ==
[2022-03-28 13:11] LABS: Erythrocyte Sedimentation Rate 14 mm/hr (0-30)
[2022-03-28 13:13] LABS: Absolute Lymphocyte Count 2.33 X10^3/uL (0.83-4.51); Absolute Neutrophil Count 3.5 X10^3/uL (2.0-7.7); Basophil# 0.05 X10^3/uL; Basophil% 0.8 % (0-1); Eosinophil# 0.18 X10^3/uL; Eosinophils% 2.8 % (0-5); Hematocrit 37.9 % (37-47); Hemoglobin 12.2 g/dL (12.0-15.0); Lymphocyte # 2.33 X10^3/ul (0.83-4.51); Lymphocyte % 35.8 % (19-41); Mean Corp Hgb Conc 32.2 g/dL (32-36); Mean Corpuscular Hgb 29.6 pg (27.0-32.0); Mean Platelet Vol. 11.4 fl (6.2-12.0); Monocyte# 0.47 X10^3/uL; Monocyte% 7.2 % (0-10); NRBC Flagged by Analyzer 0 % (0-5); Neutrophil # 3.46 X10^3/uL (2.7-7.7); Neutrophil % 53.2 % (47-70); Platelet Count 266 K/mm3 (150-450); RBC Distribution Width SD 43.9 fl (35.1-43.9); Red Blood Count 4.12 M/mm3 (4.2-5.4); White Blood Count 6.5 K/mm3 (4.4-11.0)
[2022-03-28 14:04] LABS: ALB/GLOB Ratio 0.7 RATIO (0.9-2.4); AST(SGOT) 24 U/L (15-37); Alanine Aminotransfer ALT/SGPT 34 U/L (13-56); Albumin, Serum 3.3 g/dL (3.2-5.0); Alkaline Phosphatase 103 U/L (45-117); Anion Gap 6 (5-15); BUN 15 mg/dL (7-18); BUN/Creat Ratio 22.3 RATIO (10-20); Calcium,Total 8.7 mg/dL (8.5-10.1); Chloride 106 mmol/L (98-107); Creatinine, Serum 0.67 mg/dL (0.55-1.02); EST Glomerular Filtration Rate 96 mL/min (>60); Est Glom Filt Rate - Afr Amer 116 mL/min (>60); Globulin 4.5 g/dL (2.2-4.2); Glucose 94 mg/dL (74-106); LDH 246 U/L (84-246); Potassium 3.6 mmol/L (3.5-5.1); Protein, Total 7.8 g/dL (6.4-8.2); Sodium Level 141 mmol/L (136-145)
[2022-03-29 13:07] LABS: Anti-Centromere B Ab <0.2 AI (0.0-0.9); Anti-Chromatin <0.2 AI (0.0-0.9); Anti-Jo <0.2 AI (0.0-0.9); Anti-Scleroderma-70 AB <0.2 AI (0.0-0.9); RNP Ab 0.2 AI (0.0-0.9); SJOGREN'S Anti-SS-A test < 0.2 AI (0.0-0.9); SJOGREN'S Anti-SS-B test < 0.2 AI (0.0-0.9); Smith Ab <0.2 AI (0.0-0.9)
[2022-03-29 15:08] LABS: Endomysial Antibody IgA Negative (Negative)
[2022-03-29 16:15] LABS: Immunoglobulin A 213 mg/dL (87-352); t-Transglutaminase IgA <2 U/mL (0-3)
[2022-03-29 18:35] LABS: Anti-dsDNA Ab 1 IU/mL (0-9)
[2022-04-02 01:06] LABS: Albumin 3.5 g/dL (2.9-4.4); Alpha-1-Globulins 0.2 g/dL (0.0-0.4); Alpha-2-Globulins 0.9 g/dL (0.4-1.0); Cytoplasmic Ab (C-ANCA) <1:20 titer (Neg:<1:20); Gamma Globulin 1.3 g/dL (0.4-1.8); Immunoglobulin A 219 mg/dL (87-352); Immunoglobulin E 52 IU/mL (6-495); Immunoglobulin G 1267 mg/dL (586-1602); Immunoglobulin M 193 mg/dL (26-217)
[2022-04-02 20:35] LABS: Perinuclear Ab (P-ANCA) <1:20 titer (Neg:<1:20)
== END | disposition home or self-care (01) ==
PROVIDERS: PCP Family Medicine; Visit Provider Nurse Practitioner Adult Health
DX: R19.7 Diarrhea, unspecified (principal); K58.9 Irritable bowel syndrome, unspecified
CPT/HCPCS: 36415; 80053; 82784; 82785; 83516; 83615; 84165; 85025; 85652; 86140; 86225; 86235; 86255; 86256; 86334

== ENCOUNTER → 2022-04-01 | Outpatient (CLI) | payer MEDICARE, MEDICAID, SELFPAY ==
[2022-04-03 16:49] LABS: Calprotectin, Stool 64 ug/g (0-120)
== END | disposition home or self-care (01) ==
PROVIDERS: PCP Family Medicine; Referring Provider Nurse Practitioner Adult Health; Visit Provider Nurse Practitioner Adult Health
DX: R19.7 Diarrhea, unspecified (principal)
CPT/HCPCS: 83993

== ENCOUNTER → 2022-04-25 | Outpatient (CLI) | payer MEDICARE, MEDICAID, SELFPAY ==
--- NOTE | 2022-04-25 14:53 | CT_ITS ---
EXAM: CT ABDOMEN AND PELVIS WITH INTRAVENOUS CONTRAST CLINICAL INDICATION: suspect Crohn(labs suggest),FH crohn,ab pain,diarr -- enterography TECHNIQUE: Helically acquired images were obtained of the abdomen and pelvis with intravenous contrast. This CT exam was performed using one or more of the following dose reduction techniques: automated exposure control, adjustment of the mA and/or kV according to patient size, and/or use of iterative reconstruction technique. This report was created using zoidu report generation technology. CONTRAST: Oral and amp; IV BREEZA NEUTRAL and amp; 100mL Isovue-370 COMPARISON: None. FINDINGS: LOWER THORAX: Unremarkable. Lung bases are clear. No cardiomegaly. No significant pericardial effusion. ABDOMEN: LIVER: Diffuse fatty infiltration of the liver. No focal lesion. GALLBLADDER AND BILE DUCTS: Gallbladder is surgically absent. No intra- or extrahepatic biliary ductal dilation. PANCREAS: Unremarkable. No focal cystic or solid mass. SPLEEN: Unremarkable. Normal size without focal cystic or solid mass. ADRENALS: Unremarkable. No nodules. KIDNEYS AND URETERS: Subcentimeter low-attenuation lesions in the left kidney too small to characterize. No hydronephrosis. STOMACH AND BOWEL: Unremarkable. No stomach or bowel distention. No focal inflammatory change. PELVIS: APPENDIX: No evidence of acute appendicitis. BLADDER: Unremarkable. REPRODUCTIVE: Unremarkable as visualized. No mass. ABDOMEN and PELVIS: INTRAPERITONEAL SPACE: Unremarkable. No ascites or other fluid collection. No free air. BONES/JOINTS: Unremarkable. No suspicious lytic or blastic abnormality. SOFT TISSUES: Unremarkable. No discrete abdominal or pelvic wall hernia. VASCULATURE: Unremarkable. Abdominal aorta is normal in caliber. LYMPH NODES: Unremarkable. No enlarged lymph nodes. CT/Abdomen/Pelvis WITH Contrast IMPRESSION: 1. No acute findings. 2. Hepatic steatosis. 3. Subcentimeter left renal hypodensities too small to characterize. Follow-up is not indicated per ACR guidelines. Electronically Signed: Brianna Childress MD at 16:50 EST Reading Location ID and State: [id number] / Tel , Service support ,
== END | disposition home or self-care (01) ==
LOC: CT 14:52
PROVIDERS: PCP Family Medicine; Referring Provider Nurse Practitioner Adult Health; Visit Provider Nurse Practitioner Adult Health
DX: R10.9 Unspecified abdominal pain (principal); R89.9 Unspecified abnormal finding in specimens from other organs, systems and tissues; R19.7 Diarrhea, unspecified; Z83.79 Family history of other diseases of the digestive system
CPT/HCPCS: 74177; Q9967

== ENCOUNTER → 2022-05-01 | Outpatient (CLI) | payer MEDICARE, MEDICAID, SELFPAY ==
--- NOTE | 2022-05-01 08:52 | US_ITS ---
STUDY: ABDOMINAL ULTRASOUND - ELASTOGRAPHY REASON FOR VISIT: Female, 56 years old. Fatty infiltration of the liver. TECHNIQUE: Liver stiffness measurements were obtained on a 24x7 [employer] RS 85 ultrasound machine using a CA 1-7 probe following the SRU guidelines. 3 measurements were obtained using a 2-D-SWE method. The IQR/M was 20% suggesting a quality data set. TECHNICAL QUALITY: Adequate. COMPARISON: Comparison is made with prior CT scan of the abdomen and pelvis dated 04/25/2022. FINDINGS: Liver: Fatty infiltration of the liver. Median liver stiffness measured 7.5 kPa. US/ABD Limited w/ Elastography IMPRESSION: Liver stiffness measures 7.5 kPa compatible with F2-F3 (Mild to moderate liver fibrosis) Metavir score. Electronically Signed: Brigido Gomez MD at 14:31 EST ,
== END | disposition home or self-care (01) ==
PROVIDERS: PCP Family Medicine; Visit Provider Nurse Practitioner Adult Health
DX: K76.0 Fatty (change of) liver, not elsewhere classified (principal)
CPT/HCPCS: 76705; 76981

== ENCOUNTER 2022-05-14 11:26 | Day surgery (SDC) | payer MEDICARE, MEDICAID, SELFPAY ==
[2022-05-14] VITALS (7 sets, daily range): BP systolic 110–142; BP diastolic 55–88; PULSE 62–100; RESP 16–18; TEMP 36.1–36.6; O2SAT 96–100; BMI 34.0
[2022-05-14] MEDS: Lactated Ringers 1,000 ML 15 ML IV (11:54)
--- NOTE | 2022-05-14 12:45 | COLBX_PTH ---
PATIENT: CODY NORTON LOC: EN U#:[id number] AGE/SX: 56/F ROOM: RE05/14/[address]: Dr. Evan Sanchez DO : 1965 BED: DIS: 05/14/2022 SPEC #: [id number] RECD: 05/15/22 06:41 STATUS: KAYLA RADHA #: [id number] KRYSTA: 05/14/22 12:[address]: Evan Sanchez DEPT: SURGICAL PATHOLOGY RECD BY: Mariel Miranda ENTERED: 05/15/22 08:03 SP TYPE: COLON BX OTHR DR: Dr. Nilesh Doan MD Tissues: A - Duodenum, NOS B - Esophagus, NOS C - Ileum, NOS D - COLON BIOPSY Procedures: Special Stain Group II Surgery Specimen Level IV Alcian Blue/PAS (control) HEADER OPERATION: Colonoscopy with biopsy, EGD with biopsy ([facility]) PRE-OP DIAGNOSIS: Dysphagia, diarrhea TISSUE SUBMITTED: A ? Duodenum biopsy, B ? Esophagus biopsy, C ? Terminal ileum biopsy, D ? Random colon biopsy MICROSCOPIC DIAGNOSIS A. Duodenum, biopsy: A fragment of duodenal mucosa, no pathologic diagnosis. B. Esophagus, biopsy: A fragment of gastric mucosa with chronic inflammation. Intestinal metaplasia (goblet cell metaplasia) not identified. See comment. C. Terminal ileum, biopsy: Fragments of small intestinal mucosa, no pathologic diagnosis. D. Colon, random biopsy: Fragments of colonic mucosa, no pathologic diagnosis. SJ:jourdan 05/16/2022 COMMENT B. Alcian blue/PAS stain with matched control is used in the evaluation of the specimen. MICROSCOPIC DESCRIPTION Slides are reviewed. GROSS DESCRIPTION A - Received in fixative is one container labeled with the patient's name and designated duodenum biopsy. The specimen consists of one irregular fragment of light taylor soft tissue that measures 0.4 x 0.3 x 0.1 cm. The specimen is totally submitted in one cassette. B - Received in fixative is one container labeled with the patient's name and designated esophagus biopsy. The specimen consists of one irregular fragment of light taylor soft tissue that measures 0.4 x 0.3 x 0.1 cm. The specimen is totally submitted in one cassette. C - Received in fixative is one container labeled with the patient's name and designated terminal ileum biopsy. The specimen consists of two irregular fragments of light taylor soft tissue that in aggregate measure 0.6 x 0.6 x 0.1 cm. The specimen is totally submitted in one cassette. D - Received in fixative is one container labeled with the patient's name and designated random colon biopsy. The specimen consists of multiple irregular fragments of light taylor soft tissue that in aggregate measure 1.5 x 0.5 x 0.1 cm. The specimen is totally submitted in one cassette. / SJ:rg 05/15/2022 TC:3 CPT: 67404 x4, 40844
--- NOTE | 2022-05-14 13:07 | HP.PCM_ITS ---
History and Physical Date of Admission: 05/14/22 56 F who presents to the office today to establish with gastroenterology for dysphagia for several yrs, as well as epigastric pain after eating and chronic diarrhea. Lives with her mom, accompanied by her sister Stacey who is our patient. Can choke on water at times, moreso than with thick liquids. Never had food bolus stuck in esophagus. Had swallow study, showed esophageal retention in mid- esophagus. No sore throat or chest pain. No esophageal spasms. Takes omeprazole 20 mg daily, added fairly recently, no change in dysphagia. No nausea or vomiting. No early satiety. C/o epigastric burning after she eats; her sister Stacey notices that Nadya often holds her stomach after she eats. Chronic diarrhea for many years but worse lately, with recent fecal incontinence. Has seen bright red blood in toilet or on toilet paper. Diarrhea 3-4x per day. Urgent BMs. Has started Zenpep but no relief of diarrhea or epigastric pain. No nocturnal diarrhea. Occas constipation which is successfully treated with warm prune juice, occurs every 1-2 mos. No prior EGD. She had colonoscopy 7 mos ago, no microscopic colitis. Stool studies neg for infection. Fecal elastase is low. 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 This esophageal retention had minimally improved clearance when provided thin liquid wash. 08/14/[address] Montgomery: internal and external hemorrhoids, 2 polyps, scattered diverticulaPath: no pathologic changes on random biopsies of colon, inflammatory polyp, hyperplastic polyp. Dr Montgomery noted lax abd and lax anal tone. PSH includes cholecystectomy Sister Stacey has Crohn's ROS Const Constitutional: No fatigue, fever(s), frequent falls, headache(s) or weight change ENT ENT: Positive for difficulty swallowing; No headache(s) Cardio Cardiology: No leg pain with exertion Gastro GI: Positive for diarrhea and difficulty swallowing; No abdominal pain, bloating, change in bowel habits, constipation, heartburn, Vomiting blood/hematemesis, Blood in stool, nausea/dyspepsia or vomiting Musc Musculoskeletal: Positive for back pain; No abnormal gait, joint pain, joint swelling, muscle cramps, muscle weakness, numbness, stiffness, tingling, Arthritis, sciatica, leg pain at night or leg pain with exertion Skin Skin: No dry skin, lesions, itchy eyes or rash Neuro Neurology: No abnormal gait, dizziness, frequent falls, headache(s), numbness, tingling, tremor(s), Increased tone in limbs, paralysis or seizures Psych Psychiatric: No anxiety, No depression, No paranoia, No Behavioral Problems, No Compulsive Behavior, No hyperactivity, No inattentiveness, No obsessions/compulsions, No Temper Tantrums and No suicidal ideation Endo Endocrine: No fatigue or weight change Aller/Imm Allergy/Immunologic: No itchy eyes Neno/Lymp Hematologic/Lymphatic: No easy bleeding or easy bruising Exam Const General: cooperative, comfortable and no acute distress Nutritional Appearance: overweight Orientation: alert, awake and oriented x3 HENMT Head: normal to inspection Eyes Sclera: sclerae normal Resp Effort & Inspection: normal respiratory effort GI Inspection: normal to inspection Palpation: soft, no hepatosplenomegaly, no masses and nontender General: bladder normal to palpation Bimanual Exam- Vagina & Uterus: bladder normal to palpation Skin General: no rashes or lesions noted Neuro Gait: normal gait Psych Mood: euthymic mood Quality Reporting Tobacco Screening ([facility] 138) Smoking Status: Never smoker Assessment and Plan Assessment and Plan (1) Dysphagia: ?Status:?Chronic ?Plan: 56 yr old female with dysphagia, postprandial epigastric pain, chronic diarrhea. Sxs no better with PPI or with pancreatic enzymes. Will get EGD to eval for esophagitis, Gunderson's, stricture, PUD, bile acid reflux, H pylori. F/u 2 wks later in office to review bx results. (2) Diarrhea: ?Status:?Chronic ?Plan: Recent colonoscopy neg for microscopic colitis. DDx includes bile acid diarrhea, IBD, celiac. Will get labs today. Try Colestipol 1-2 g in the evening. ? ? ? Orders: Orders Miscellaneous Lab Procedure 03/26/22 R19.7 - Diarrhea, unspecified ? Comprehensive Metabolic Profil 03/26/22 R19.7 - Diarrhea, unspecified ? CRP 03/26/22 R19.7 - Diarrhea, unspecified ? LDH 03/26/22 R19.7 - Diarrhea, unspecified ? CBC W/Diff, Automated 03/26/22 K58.9 - Irritable bowel syndrom e without diarrhea, R19.7 - Diarrhea, unspecified ? Erythrocyte Sed Rate 03/26/22 R19.7 - Diarrhea, unspecified ? BUD Comprehensive Panel 03/26/22 R19.7 - Diarrhea, unspecified ? Calprotectin, Stool 03/26/22 R19.7 - Diarrhea, unspecified ? ANCA 03/26/22 R19.7 - Diarrhea, unspecified ? Celiac Disease Profile 03/26/22 R19.7 - Diarrhea, unspecified ? Immunoglobulins G/A/M/E 03/26/22 R19.7 - Diarrhea, unspecified ? YANDY + Protein Elect, Serum 03/26/22 R19.7 - Diarrhea, unspecified ? EGD 05/15/22 R13.10 - Dysphagia, unspecified ? Medications: New colestipol ?1-2 tablets by mouth once a day in the evening 60 tabs 1RF ? ? I have examined the patient and the H&P has been reviewed. There are no clinical changes since date of exam.
--- NOTE | 2022-05-14 14:14 | OP.EGD_ITS ---
Patient Name: Nadya Hogan Procedure Date: 05/14/2022 1:30 PM Date of : 1965 Age: 56 Procedure: Upper GI endoscopy Indications: Dysphagia Providers: Evan Sanchez DO Medicines: Monitored Anesthesia Care Patient Profile: This is a 56 year old female. Refer to note in patient chart for documentation of history and physical. Patient has symptoms of chronic dysphagia. Complications: No immediate complications. Procedure: Pre-Anesthesia Assessment: - Prior to the procedure, a History and Physical was performed, and patient medications and allergies were reviewed. The risks and benefits of the procedure and the sedation options and risks were discussed with the patient. All questions were answered and informed consent was obtained. Patient identification and proposed procedure were verified by the physician in the pre-procedure area. Mental Status Examination: alert and oriented. Airway Examination: normal oropharyngeal airway and neck mobility. Respiratory Examination: clear to auscultation. CV Examination: normal. Prophylactic Antibiotics: The patient does not require prophylactic antibiotics. Prior Anticoagulants: The patient has taken no previous anticoagulant or antiplatelet agents. ASA Grade Assessment: II - A patient with mild systemic disease. After reviewing the risks and benefits, the patient was deemed in satisfactory condition to undergo the procedure. The anesthesia plan was to use moderate sedation / analgesia (conscious sedation). Immediately prior to administration of medications, the patient was re-assessed for adequacy to receive sedatives. The heart rate, respiratory rate, oxygen saturations, blood pressure, adequacy of pulmonary ventilation, and response to care were monitored throughout the procedure. The physical status of the patient was re-assessed after the procedure. After obtaining informed consent, the endoscope was passed under direct vision. Throughout the procedure, the patient's blood pressure, pulse, and oxygen saturations were monitored continuously. The pediatric colonoscope was introduced through the mouth, and advanced to the second part of duodenum. The upper GI endoscopy was accomplished without difficulty. The patient tolerated the procedure well. Scope In: 1:43:18 PM Scope Out: 1:47:11 PM Total Procedure Duration Time 0 hours 3 minutes 53 seconds Findings: Abnormal motility was noted in the upper third of the esophagus. The cricopharyngeus was abnormal. There is a decrease in motility of the esophageal body. The distal esophagus/lower esophageal sphincter is patulous. Tertiary peristaltic waves are noted. A moderate Schatzki ring was found in the lower third of the esophagus. A guidewire was placed and the scope was withdrawn. Dilation was performed with a Savary dilator with no resistance at 45 Fr. The dilation site was examined and showed mild improvement in luminal narrowing. Estimated blood loss was minimal. The Z-line was irregular and was found 40 cm from the incisors. Biopsies were taken with a cold forceps for histology. Verification of patient identification for the specimen was done. Estimated blood loss was minimal. A small hiatal hernia was present. No other significant abnormalities were identified in a careful examination of the stomach. No gross lesions were noted in the second portion of the duodenum. Biopsies were taken with a cold forceps for histology. Impression: - Abnormal esophageal motility, suspicious for aperistalsis. - Moderate Schatzki ring. Dilated. - Z-line irregular, 40 cm from the incisors. Biopsied. - Small hiatal hernia. - No gross lesions in the second portion of the duodenum. Biopsied. - Esophageal manometry Recommendation: - Await pathology results. - Continue present medications. Procedure Code(s): --- Professional --- 41471, Esophagogastroduodenoscopy, flexible, transoral; with insertion of guide wire followed by passage of dilator(s) through esophagus over guide wire 06730, 59, Esophagogastroduodenoscopy, flexible, transoral; with biopsy, single or multiple CPT copyright 2017 [employer]. All rights reserved. The codes documented in this report are preliminary and upon product trainer review may be revised to meet current compliance requirements. Evan Sanchez DO 05/14/2022 2:14:09 PM This report has been signed electronically. Number of Addenda: 0 Note Initiated On: 05/14/2022 1:30 PM
--- NOTE | 2022-05-14 14:15 | OP.CCLET_ITS ---
05/14/2022 Nilesh Doan [address] [place] [address] Re : Upper GI endoscopy procedure for Nadya Hogan Dear Dr. Doan This procedure was performed on Saturday, May 14, 2022. My impressions and recommendations are as follows: Impressions : - Abnormal esophageal motility, suspicious for aperistalsis. - Moderate Schatzki ring. Dilated. - Z-line irregular, 40 cm from the incisors. Biopsied. - Small hiatal hernia. - No gross lesions in the second portion of the duodenum. Biopsied. - Esophageal manometry Recommendations : - Await pathology results. - Continue present medications. My findings are described in the full procedure note, which is enclosed. If I can be of further assistance, please feel free to contact me at . Sincerely, Evan Sanchez, 05/14/2022 2:14:09 PM This report has been signed electronically.
--- NOTE | 2022-05-14 14:21 | OP.COLON_ITS ---
Patient Name: Nadya Hogan Procedure Date: 05/14/2022 1:47 PM Date of : 1965 Age: 56 Procedure: Colonoscopy Indications: Chronic diarrhea Providers: Evan Sanchez DO Medicines: Monitored Anesthesia Care Patient Profile: This is a 56 year old female. Refer to note in patient chart for documentation of history and physical. Patient has symptoms of chronic dysphagia. Last Colonoscopy: within the past 3 years. Complications: No immediate complications. Procedure: Pre-Anesthesia Assessment: - Prior to the procedure, a History and Physical was performed, and patient medications and allergies were reviewed. The risks and benefits of the procedure and the sedation options and risks were discussed with the patient. All questions were answered and informed consent was obtained. Patient identification and proposed procedure were verified by the physician in the pre-procedure area. Mental Status Examination: alert and oriented. Airway Examination: normal oropharyngeal airway and neck mobility. Respiratory Examination: clear to auscultation. CV Examination: normal. Prophylactic Antibiotics: The patient does not require prophylactic antibiotics. Prior Anticoagulants: The patient has taken no previous anticoagulant or antiplatelet agents. ASA Grade Assessment: II - A patient with mild systemic disease. After reviewing the risks and benefits, the patient was deemed in satisfactory condition to undergo the procedure. The anesthesia plan was to use moderate sedation / analgesia (conscious sedation). Immediately prior to administration of medications, the patient was re-assessed for adequacy to receive sedatives. The heart rate, respiratory rate, oxygen saturations, blood pressure, adequacy of pulmonary ventilation, and response to care were monitored throughout the procedure. The physical status of the patient was re-assessed after the procedure. After I obtained informed consent, the scope was passed under direct vision. Throughout the procedure, the patient's blood pressure, pulse, and oxygen saturations were monitored continuously. The colonoscope was introduced through the anus and advanced to the terminal ileum. The colonoscopy was performed without difficulty. The patient tolerated the procedure well. The quality of the bowel preparation was good. Scope In: 1:49:21 PM Scope Withdrawal Time 0 hours 8 minutes 45 seconds Scope Out: 2:04:32 PM Total Procedure Duration Time 0 hours 15 minutes 11 seconds Findings: The perianal and digital rectal examinations were normal. An area of mildly congested mucosa was found in the recto-sigmoid colon, at the splenic flexure and in the cecum. Biopsies were taken with a cold forceps for histology. Verification of patient identification for the specimen was done. Estimated blood loss was minimal. A segmental area of mucosa in the terminal ileum was moderately erythematous. There were aphthous ulcers seen in the terminal ileum biopsies were taken with a cold forceps for histology. Verification of patient identification for the specimen was done. Estimated blood loss was minimal. Impression: - Congested mucosa in the recto-sigmoid colon, at the splenic flexure and in the cecum. Biopsied. - Erythematous mucosa in the terminal ileum with apthous ulcers biopsied. Recommendation: - Discharge patient to home. - Resume previous diet. - Continue present medications. - Await pathology results. - Repeat colonoscopy for surveillance based on pathology results. -Capsule endoscopy and MRI enterography Procedure Code(s): --- Professional --- 46896, Colonoscopy, flexible; with biopsy, single or multiple CPT copyright 2017 [employer]. All rights reserved. The codes documented in this report are preliminary and upon medical records coder review may be revised to meet current compliance requirements. Evan Sanchez DO 05/14/2022 2:20:38 PM This report has been signed electronically. Number of Addenda: 0 Note Initiated On: 05/14/2022 1:47 PM
--- NOTE | 2022-05-14 14:22 | OP.CCLET_ITS ---
05/14/2022 Nilesh Doan [address] [place] [address] Re : Colonoscopy procedure for Nadya Hogan Dear Dr. Doan This procedure was performed on Saturday, May 14, 2022. My impressions and recommendations are as follows: Impressions : - Congested mucosa in the recto-sigmoid colon, at the splenic flexure and in the cecum. Biopsied. - Erythematous mucosa in the terminal ileum with apthous ulcers biopsied. Recommendations : - Discharge patient to home. - Resume previous diet. - Continue present medications. - Await pathology results. - Repeat colonoscopy for surveillance based on pathology results. -Capsule endoscopy and MRI enterography My findings are described in the full procedure note, which is enclosed. If I can be of further assistance, please feel free to contact me at . Sincerely, Evan Sanchez, 05/14/2022 2:20:38 PM This report has been signed electronically.
== END 2022-05-14 14:51 | disposition home or self-care (01) ==
LOC: EN 11:28 → AC 11:31
PROVIDERS: PCP Family Medicine; Referring Provider Family Medicine; Visit Provider Internal Medicine Gastroenterology
PROC: 0DJD8ZZ Inspection of Lower Intestinal Tract, Via Natural or Artificial Opening Endoscopic (ICD-10-PCS; CPT 45378; principal; 2022-05-14 12:40)
DX: R13.10 Dysphagia, unspecified (principal); K44.9 Diaphragmatic hernia without obstruction or gangrene; Z90.49 Acquired absence of other specified parts of digestive tract; K58.0 Irritable bowel syndrome with diarrhea
CPT/HCPCS: 45380; 43239; 43248; 88305; 88313; J7120; J2405

== ENCOUNTER 2022-06-28 07:22 | Day surgery (SDC) | payer MEDICARE, MEDICAID, SELFPAY ==
[2022-06-28] MEDS: Lidocaine Jelly 2% 20 ML Syringe (URO-JET) 1 APPLIC (07:44)
[2022-06-28 07:47] VITALS: BP 137/90; PULSE 67; RESP 18; TEMP 35.9; O2SAT 97
== END 2022-06-28 23:59 | disposition home or self-care (01) ==
LOC: EN 07:23
PROVIDERS: PCP Family Medicine; Referring Provider Family Medicine; Visit Provider Internal Medicine Gastroenterology
PROC: F00ZJWZ Instrumental Swallowing and Oral Function Assessment using Swallowing Equipment (ICD-10-PCS; CPT 43235; principal; 2022-06-28 07:25)
DX: K22.4 Dyskinesia of esophagus (principal)
CPT/HCPCS: 91010

== ENCOUNTER 2022-07-10 13:42 | Outpatient (CLI) | payer MEDICARE, MEDICAID, SELFPAY ==
[2022-07-10 14:58] LABS: T4 Free Direct 1.23 ng/dL (0.76-1.46); Thyroid Stim Hormone (TSH) < 0.01 uIU/mL (0.358-3.74)
[2022-07-10 16:04] LABS: Hepatitis B Surface Antibody Non-Reactive; Rubella IgG Non-Reactive (Nonreactive)
[2022-07-12 13:08] LABS: HEPATITIS B SURFACE AG Negative (Negative); Hep C Antibodies Non Reactive (Non Reactive); Hepatitis A IgM Antibody Negative (Negative); Hepatitis B Core AB IgM Negative (Negative); QNTFERON TB Mitogen Value > 10.00 IU/mL (.); QNTFERON TB Nil Value 0 IU/mL (.); QNTFERON TB1+ Ag Value 0.02 IU/mL (.); QNTFERON TB2+ Ag Value 0.02 IU/mL (.); QNTIFERON TB Positive Criteria Negative (Negative); Rubeola IgG Ab > 300.0 AU/mL (Immune >16.4); V-Zoster IgG (Immunity) 1420 index (Immune >165)
[2022-07-12 17:07] LABS: Anti-Thyroglobulin AB < 1.0 IU/mL (0.0-0.9); Thyroglobulin, Serum Qt. 0.1 ng/mL (1.5-38.5)
== END 2022-07-10 23:59 | disposition home or self-care (01) ==
LOC: LAB 13:45
PROVIDERS: PCP Family Medicine; Referring Provider Nurse Practitioner Adult Health; Visit Provider Nurse Practitioner Adult Health
DX: Z01.84 Encounter for antibody response examination (principal); K50.90 Crohn's disease, unspecified, without complications; Z85.850 Personal history of malignant neoplasm of thyroid; K52.9 Noninfective gastroenteritis and colitis, unspecified; K76.0 Fatty (change of) liver, not elsewhere classified
CPT/HCPCS: 36415; 80074; 84432; 84439; 84443; 86480; 86706; 86735; 86762; 86765; 86787; 86800

== ENCOUNTER 2022-11-21 14:28 | Outpatient (CLI) | payer MEDICARE, MEDICAID, SELFPAY ==
[2022-11-21] MEDS: 0.9% NaCl Peripheral Flush Adult/Peds IV (14:42)
[2022-11-21 14:43] VITALS: BP 136/72; PULSE 70; RESP 16; TEMP 36.4; O2SAT 98; BMI 33.6
[2022-11-21] MEDS: Ustekinumab 390 MG in 0.9% Normal Saline (250mL Bag) 172 ML 250 MG IV (15:02)
[2022-11-21] MEDS: 0.9% NaCl IVPB Med Flush (250 mL) 15 ML IV (15:02)
[2022-11-21 16:24] VITALS: BP 137/77; PULSE 60; RESP 16; TEMP 36.3; O2SAT 97
== END 2022-11-21 14:29 | disposition home or self-care (01) ==
LOC: MEDOUTP 14:28
PROVIDERS: PCP Family Medicine; Referring Provider Internal Medicine Gastroenterology; Visit Provider Internal Medicine Gastroenterology
DX: K50.90 Crohn's disease, unspecified, without complications (principal)
CPT/HCPCS: 96365; J7050; A4216; J3358

== ENCOUNTER → 2022-12-20 | Outpatient (CLI) | payer MEDICARE, MEDICAID, SELFPAY ==
--- NOTE | 2022-12-20 15:30 | RAD_ITS ---
EXAM: XR LEFT KNEE, 3 VIEWS CLINICAL INDICATION: KNEE PAIN TECHNIQUE: Three views of the left knee. COMPARISON: No relevant prior studies available. FINDINGS: BONES/JOINTS: No acute fracture or subluxation. Minimal joint effusion. No significant joint space narrowing. Minimal osteophytosis. SOFT TISSUES: Normal. No soft tissue swelling or gas. No radiopaque foreign body. RAD/Knee 3 Views IMPRESSION: Small knee joint effusion. Mild osteophytosis. Electronically Signed: Rustam Campos MD at 16:14 EDT ,
--- NOTE | 2022-12-20 15:31 | RAD_ITS ---
EXAM: XR RIGHT KNEE, 3 VIEWS CLINICAL INDICATION: KNEE PAIN TECHNIQUE: Three views of the right knee. COMPARISON: No relevant prior studies available. FINDINGS: BONES/JOINTS: No acute fracture, subluxation or joint effusion. Mild narrowing of the patellofemoral joint space. Mild osteophytosis. SOFT TISSUES: Normal. No soft tissue swelling or gas. No radiopaque foreign body. RAD/Knee 3 Views IMPRESSION: No acute abnormality. DJD. Electronically Signed: Rustam Campos MD at 16:14 EDT ,
== END | disposition home or self-care (01) ==
LOC: MTRAD 15:28
PROVIDERS: PCP Family Medicine; Referring Provider Family Medicine; Visit Provider Family Medicine
DX: M25.561 Pain in right knee (principal); M25.562 Pain in left knee
CPT/HCPCS: 73562

== ENCOUNTER → 2023-04-24 | Outpatient (CLI) | payer MEDICARE, MEDICAID, SELFPAY ==
[2023-04-24 11:09] LABS: Erythrocyte Sedimentation Rate 12 mm/hr (0-30)
[2023-04-24 11:11] LABS: Absolute Neutrophil Count 3.6 X10^3/uL (2.0-7.7); Basophil# 0.07 X10^3/uL; Basophil% 1.1 % (0-1); Eosinophil# 0.12 X10^3/uL; Eosinophils% 1.9 % (0-5); Hematocrit 38.5 % (37-47); Hemoglobin 12.7 g/dL (12.0-15.0); Lymphocyte % 30.6 % (19-41); Mean Corpuscular Hgb 30.3 pg (27.0-32.0); Mean Corpuscular Volume 91.9 fL (81-99); Mean Platelet Vol. 11.1 fl (6.2-12.0); Monocyte# 0.46 X10^3/uL; Monocyte% 7.4 % (0-10); NRBC Flagged by Analyzer 0 % (0-5); Neutrophil # 3.63 X10^3/uL (2.7-7.7); Neutrophil % 58.7 % (47-70); Platelet Count 217 K/mm3 (150-450); RBC Distribution Width CV 13.4 % (11.6-14.6); RBC Distribution Width SD 45.3 fl (35.1-43.9); Red Blood Count 4.19 M/mm3 (4.2-5.4); White Blood Count 6.2 K/mm3 (4.4-11.0)
[2023-04-24 11:52] LABS: ALB/GLOB Ratio 0.9 RATIO (0.9-2.4); AST(SGOT) 35 U/L (15-37); Alanine Aminotransfer ALT/SGPT 44 U/L (13-56); Albumin, Serum 3.6 g/dL (3.2-5.0); Alkaline Phosphatase 92 U/L (45-117); Anion Gap 2 (5-15); BUN 14 mg/dL (7-18); BUN/Creat Ratio 19.8 RATIO (10-20); CRP 9.12 mg/L (0.0-3.0); Calcium,Total 8.4 mg/dL (8.5-10.1); Chloride 112 mmol/L (98-107); Creatinine, Serum 0.71 mg/dL (0.55-1.02); EST Glomerular Filtration Rate 91 mL/min (>60); Est Glom Filt Rate - Afr Amer 110 mL/min (>60); Globulin 3.8 g/dL (2.2-4.2); Glucose 98 mg/dL (74-106); LDH 281 U/L (84-246); Potassium 3.8 mmol/L (3.5-5.1); Protein, Total 7.4 g/dL (6.4-8.2); Sodium Level 142 mmol/L (136-145)
[2023-04-29 08:11] LABS: QNTFERON TB Mitogen Value > 10.00 IU/mL (.); QNTFERON TB Nil Value 0.01 IU/mL (.); QNTFERON TB1+ Ag Value 0.05 IU/mL (.); QNTFERON TB2+ Ag Value 0.05 IU/mL (.); QNTIFERON TB Positive Criteria Negative (Negative)
== END | disposition home or self-care (01) ==
PROVIDERS: PCP Family Medicine; Referring Provider Internal Medicine Gastroenterology; Visit Provider Internal Medicine Gastroenterology
DX: K50.90 Crohn's disease, unspecified, without complications (principal); R19.7 Diarrhea, unspecified
CPT/HCPCS: 36415; 80053; 83615; 85025; 85652; 86140; 86480

== ENCOUNTER → 2023-04-30 | Outpatient (CLI) | payer MEDICARE, MEDICAID, SELFPAY ==
--- OUTSIDE RECORDS SUMMARY | 2023-04-30 22:05 | XMS RPT_ITS | CCD ---
Author Name Unknown Address [id number] [place] [address] Organization [facility] Care Team Providers Care Plate Finisher Name Role Phone DANILO ORTIZ, KAYODE Primary Care Physician OMAR ORTIZ, CHARLOTTE Moyer Attending Renetta CARRASCO MD, KAYODE Primary [facility] Unavailable OMAR ORTIZ, CHARLOTTE Moyer Attending Renetta CARRASCO MD, KAYODE Primary [facility] Unavailable AUDRA NUCLEAR MEDICINE SUPERVISOR, CONRAD AVILA Attending Rob CARRASCO MD, KAYODE Primary [facility] Unavailable AUDRA NUCLEAR MEDICINE SUPERVISOR, CONRAD AVILA Attending Rob CARRASCO MD, [facility] Unavailable AUDRA NUCLEAR MEDICINE SUPERVISOR, CONRAD AVILA Attending Rob CARRASCO MD, [facility] Unavailable AUDRA NUCLEAR MEDICINE SUPERVISOR, CONRAD AVILA Attending Rob CARRASCO MD, [facility] Unavailable ANG ORTIZ, DR DYSON Attending Khushboo CARRASCO MD, [facility] Unavailable OMAR ORTIZ, CHARLOTTE Moyer Attending Renetta CARRASCO MD, [facility] Unavailable OMAR ORTIZ, CHARLOTTE Moyer Attending Renetta CARRASCO MD, [facility] Primary [facility] Unavailable Allergies Allergy Classification Reported Allergen(s) Allergy Type Date of Onset Reaction(s) Facility (4 sources) Acetaminophen / HYDROcodone; Translations: [acetaminophen-hyd rocodone] Drug Allergy [facility] (4 sources) Latex Allergy to substance [facility] Medications Current Medications Medication Drug Class(es) Dates Sig (Normalized) Sig (Original) amylase 67861 unt / lipase 18180 unt / protease 10628 unt delayed release oral capsule (4 sources) Start: 05-19-2022 Zenpep 20,000 units-63,000 units-84,000 units oral delayed release capsule 0 Refill(s) Start Date: 05/19/22 Status: Ordered cetirizine hydrochloride 10 mg oral tablet (8 sources) Histamine-1 Receptor Antagonist Start: 09-05-2020 cetirizine 10 mg oral tablet Dose : 10 mg = 1 tab(s), Oral, qDay, 0 Refill(s) Start Date: 09/05/20 Status: Ordered Cholecalciferol (4 sources) Vitamin D Start: 05-19-2022 Vitamin D (3) 45 units oral capsule 0 Refill(s) Start Date: 05/19/22 Status: Ordered colestipol hydrochloride 1000 mg oral tablet (4 sources) Bile Acid Sequestrant Start: 05-19-2022 colestipol 1 g oral tablet 0 Refill(s) Start Date: 05/19/22 Status: Ordered cyclobenzaprine hydrochloride 5 mg oral tablet (1 source) Muscle Relaxant Start: 05-19-2022 End: 05-22-2022 cyclobenzaprine 5 mg oral tablet Dose : 5 mg = 1 tab(s), Oral, TID, PRN Muscle spasm, X 3 day(s), # 9 tab(s), 0 Refill(s), 05/22/22 13:07:00 EDT Start Date: 05/19/22 Stop Date: 05/22/22 Status: Ordered Colace (8 sources) Start: 09-05-2020 Colace Oral, qDay, 0 Refill(s) Start Date: 09/05/20 Status: Ordered levothyroxine sodium 0.1 mg oral tablet (8 sources) l-Thyroxine Start: 09-04-2020 Synthroid 100 mcg (0.1 mg) oral tablet Dose : 100 mcg = 1 tab(s), Oral, qDay, # 30 tab(s), 0 Refill(s) Start Date: 09/04/20 Status: Ordered naproxen 500 mg delayed release oral tablet (1 source) Nonsteroidal Anti-inflammatory Drug Start: 05-19-2022 End: 05-24-2022 naproxen 500 mg oral delayed release tablet Dose : 500 mg = 1 tab(s), Oral, BID, X 5 day(s), # 10 tab(s), 0 Refill(s), 05/24/22 13:08:00 EDT Start Date: 05/19/22 Stop Date: 05/24/22 Status: Ordered omeprazole 20 mg delayed release oral capsule (4 sources) Proton Pump Inhibitor Start: 05-19-2022 omeprazole 20 mg oral delayed release capsule 0 Refill(s) Start Date: 05/19/22 Status: Ordered 24 hr oxybutynin chloride 10 mg extended release oral tablet (4 sources) Cholinergic Muscarinic Antagonist Start: 09-05-2020 take 1 tablet by mouth every hour, then take 1 tablet by mouth once daily oxybutynin 10 mg/24 hr oral tablet, extended release Dose : 10 mg = 1 tab(s), Oral, qDay, 0 Refill(s) Start Date: 09/05/20 Status: Ordered Probiotic (8 sources) Start: 09-05-2020 Probiotic 1, Oral, Daily, 0 Refill(s) Start Date: 09/05/20 Status: Ordered vibegron 75 MG Oral Tablet [Gemtesa] (4 sources) Start: 05-19-2022 Gemtesa 75 mg oral tablet Dose : 75 mg = 1 tab(s), Oral, qDay, # 30 tab(s), 0 Refill(s) Start Date: 05/19/22 Status: Ordered Problems Problem Classification Problem Date Documented Da te Episodic/Chronic Other gastrointestinal disorders (8 sources) Diarrhea Onset: 08-31-2016 12-02-2016 Episodic Results Test Name Value Interpretation Reference Range Facil ity Vital Signs Date Time Vital Sign Value Performing Clinician Suzie saunders 10-01-2022 09:05-0400 Body height 160.02 cm CHARLOTTE NELSON MD [facility] 10-01-2022 09:01-0400 Body temperature 98.06 [degF] CHARLOTTE NELSON MD [facility] 10-01-2022 09:01-0400 Diastolic Blood Pressure Non-Invasive 74 1 CHARLOTTE NELSON MD [facility] 10-01-2022 09:01-0400 Heart rate 55 /min CHARLOTTE NELSON MD [facility] 10-01-2022 09:01-0400 Systolic Blood Pressure Non-Invasive 131 1 CHARLOTTE NELSON MD [facility] 09-30-2022 09:13-0400 Body height 160.02 cm CHARLOTTE NELSON MD [facility] 09-30-2022 09:06-0400 Body temperature 98.06 [degF] CHARLOTTE NELSON MD [facility] 09-30-2022 09:06-0400 Diastolic Blood Pressure Non-Invasive 73 1 CHARLOTTE NELSON MD [facility] 09-30-2022 09:06-0400 Heart rate 64 /min CHARLOTTE NELSON MD [facility] 09-30-2022 09:06-0400 Systolic Blood Pressure Non-Invasive 135 1 CHARLOTTE NELSON MD [facility] 09-30-2022 09:06-0400 Respiratory rate 18 /min CHARLOTTE NELSON MD [facility] 05-19-2022 13:23-0400 Diastolic Blood Pressure Non-Invasive [address] KIEL FRY MD [facility] 05-19-2022 13:23-0400 Heart rate 66 /min DR KIEL FRY MD [facility] 05-19-2022 13:23-0400 Respiratory rate 22 /min DR KIEL FRY MD [facility] 05-19-2022 13:23-0400 Systolic Blood Pressure Non-Invasive [address] KIEL FRY MD [facility] 05-19-2022 12:18-0400 Body temperature 99.14 [degF] DR KIEL FRY MD [facility] 05-19-2022 12:18-0400 Diastolic Blood Pressure Non-Invasive [address] KIEL FRY MD [facility] 05-19-2022 12:18-0400 Heart rate 68 /min DR KIEL FRY MD [facility] 05-19-2022 12:18-0400 Respiratory rate 21 /min DR KIEL FRY MD [facility] 05-19-2022 12:18-0400 Systolic Blood Pressure Non-Invasive [address] KIEL FRY MD [facility] Encounters Encounter Date Encounter Type Care Provider Facility Start: 10-04-2022 End: 10-05-2022 ambulatory CHARLOTTE NELSON MD Facility:B Start: 10-02-2022 End: 10-03-2022 ambulatory CHARLOTTE NELSON MD Facility:A Start: 10-01-2022 End: 10-02-2022 ambulatory CHARLOTTE NELSON MD Facility:A Start: 10-01-2022 End: 10-01-2022 Patient encounter procedure CHARLOTTE NELSON MD [facility] Start: 09-30-2022 End: 10-01-2022 ambulatory CHARLOTTE NELSON MD Facility:A Start: 09-30-2022 End: 09-30-2022 Patient encounter procedure CHARLOTTE NELSON MD [facility] Start: 08-14-2022 End: 08-15-2022 ambulatory CONRAD ZHU NUCLEAR MEDICINE SUPERVISOR Facility:B Start: 08-14-2022 End: 08-14-2022 Patient encounter procedure CONRAD ZHU NUCLEAR MEDICINE SUPERVISOR [facility] Start: 05-19-2022 End: 05-19-2022 Emergency department patient visit DR KIEL FRY MD Facility:B Start: 05-19-2022 End: 05-19-2022 Emergency department patient visit DR KIEL FRY MD [facility] Start: 03-25-2022 End: 03-26-2022 ambulatory CONRAD ZHU NUCLEAR MEDICINE SUPERVISOR Facility:B Start: 03-25-2022 End: 03-25-2022 Patient encounter procedure CONRAD ZHU NUCLEAR MEDICINE SUPERVISOR [facility] Start: 02-13-2022 End: 02-14-2022 ambulatory CONRAD ZHU NUCLEAR MEDICINE SUPERVISOR Facility:B Start: 02-13-2022 End: 02-13-2022 Patient encounter procedure CONRAD ZHU NUCLEAR MEDICINE SUPERVISOR [facility] Start: 10-22-2021 End: 10-23-2021 ambulatory CONRAD ZHU NUCLEAR MEDICINE SUPERVISOR Facility:B Start: 10-22-2021 End: 10-22-2021 Patient encounter procedure CONRAD ZHU NUCLEAR MEDICINE SUPERVISOR [facility] Start: 08-15-2021 End: 08-15-2021 Patient encounter procedure CHARLOTTE NELSON MD [facility] Procedures Date Procedure Procedure Detail Performing Clinician Start: 12-02-2016 Colonoscopy CHARLOTTE BENNETT MD Cholecystectomy CHARLOTTE CRAWLEY MD Payers Date Payer Category Payer Medicaid [id number] 2021 Medicare [id number] 1965 Unknown [id number] [id number] 1965 Unknown [id number] 2.16.8 [id number] 1965 Unknown [id number] 2.16.8 [id number] 1965 Unknown [id number] 2.16.8 [id number] 1965 Unknown [id number] 2.16.8 [id number] 1965 Unknown [id number] 2.16.8 [id number] 1965 Unknown [id number] 2.16.8 [id number] 1965 Unknown [id number] 2.16.8 [id number] 1965 Unknown [id number] 2.16.8 [id number] Social History Date Type Detail Facility Tobacco smoking status Never smo ked tobacco (finding) [facility] Sex Assigned At Sex [facility] Functional Status Date Assessment Result Facility 10-01-2022 Functional Status Awake [facility] 09-30-2022 Functional Status Awake, Remains up in chair, Repositions self, Resting [facility] 05-19-2022 Functional Status Assistive Device Wheelc hair [facility] 05-19-2022 Functional Status Standard Safet y ID band on, Call device within reach, Bed in low position, Wheels locked, Visitor at bedside, Safety level maintained [facility] Mental Status Date Assessment Result Facility 09-30-2022 Mental Status Orientation Oriented x 4 [facility] 05-19-2022 Mental Status Orientation Oriented x 4 [facility] Clinical Notes 08-15-2021 to 10-01-2022 RadiologyRadiology Note Date & Type Note Facility 10-01-2022 Summary of episode note CODY NORTON :1965 Visit Date:10/01/2022 Your Visit Summary Your Care Team Attending Physician - CHARLOTTE NELSON MD Primary Care Physician - KAYODE CARRASCO MD Vitals Temperature (Oral) 36.7 C Heart Rate 55 Blood Pressure 131/74 Height 160.02 cm What to do next Instructions From Your Doctor You have received the following therapy today: Thyrogen injection Scheduled Follow-Up Appointments Appointment Type When Where Contact InformationINF Injection - Other (15 min) 10/01/2022 09:15 AM EDT Infusion Therapy yyNM Inj Thyroid CA Mets Imag Full Bod 10/02/2022 10:00 AM EDT Radiology [phone] yyNM Thyroid CA Mets Image Body Scan 10/04/2022 12:30 PM EDT Radiology [phone] Medications What How Much When Instructions Unchanged cetirizine (cetirizine 10 mg oral tablet) 1 tab(s) by mouth Once a day Unchanged cholecalciferol (Vitamin D (3) 45 units oral capsule) Unchanged colestipol (colestipol 1 g oral tablet) Unchanged docusate (Colace) by mouth Once a day Unchanged herbal/ nutritional product (Probiotic) 1 by mouth Every day Unchanged levothyroxine (Synthroid 100 mcg (0.1 mg) oral tablet) 1 tab(s) by mouth Once a day Unchanged omeprazole (omeprazole 20 mg oral delayed release capsule) Unchanged pancrelipase (Zenpep 20,000 units-63,000 units-84,000 units oral delayed release capsule) Unchanged vibegron (Gemtesa 75 mg oral tablet) 1 tab(s) by mouth Once a day Allergies Latex Vicodin Additional Information VACCINATE! IT SAVES LIVES! Members of the community who have not yet received the COVID-19 vaccine and would like to receive it can visit one of [facility] vaccine clinics. There are many vaccine clinic locations within the [facility]. For locations and available times, please visit [email or web address] /. It is important to note that some COVID mobile vaccine clinics are held outdoors and may be canceled in rainy or stormy conditions. To learn more about pediatric vaccinations (ages 5-11), we invite you to visit the [facility] webpage. [email or web address]/page [email or web address]-Frequently -[email or web address]-Questions.html To learn more about the COVID-19 vaccine, we invite you to visit the CDC website for a list of frequently asked questions. https://www.cdc.gov/coronavirus/201 9-ncov/vaccines/faq.html [facility] Patient Portal Access Instructions: Stay connected with your healthcare team and access your personal medical information anytime with the [facility] Patient Portal.If you would like a full copy of your medical records, please contact the [facility] Medical Records Department, Friday through Friday between 8a.m. and 4:30p.m. Please follow the directions below to access the portal: 1.Access the email account you provided upon registration to the hospital.2.Look for an invitation email from [facility].3.Open the email and access the invitation link: Accept Invitation to [facility]4.Fill in the required knowles to create your account. Sign into [email or web address] with your username and password that you created in the above steps to stay up to date. You can then view a summary of results, a summary of your visits, and the ability to download your summaries to your computer or send the information securely to a physician. Remember that your healthcare information is confidential, so carefully consider who you will allow to register on the [facility] Patient Portal for access to your information. You can also access the [facility] Patient Portal on the [facility] ankit. Simply click on Health Records under Health Data and then click on the [facility] logo. HOW TO SAFELY DISPOSE OF PRESCRIPTION MEDICATIONS Please use one of the following methods to safely dispose of your unused medications. 1.Use a drug disposal kit: the drug disposal pouch allows you to safely discard your old and unused drugs. Ask your nurse to give you one when you are discharged.2.Visit a local take-back location: Many local pharmacies and police departments have programs that collect old and unwanted prescription drugs. Call your local pharmacy or go to http://[employer]Kaleidoscope/0B6Qz4w to find one close to you.3.Make use of household items: Use cat litter or old coffee grounds to dispose medications if other options are not available. Mix your drugs with these household products, seal them in an airtight container and throw it into the garbage. Call [facility]: [phone] to be sure your drugs can be disposed of in this way. Some medicines may require a different approach.4.Never flush your medications down the toilet. IF YOU HAVE BEEN PRESCRIBED AN OPIOID FOR PAIN If you have been prescribed an opioid (such as hydrocodone, oxycodone or morphine), it is critical to understand the possible side effects and risks of opioid pain medications. Even when taken as directed, opioids can have several side effects including: Tolerance, meaning you might need to take more of a medication for the same pain relief. Nausea, vomiting and/or constipation. Sleepiness, dizziness, dry mouth, confusion, depression or itching. Physical dependence, meaning you have withdrawal symptoms when a medication is stopped, can develop within a few days. KNOW YOUR RESPONSIBILITIES It is important to know exactly how much and how often to take the opioid pain medications you are prescribed. Never take opioids in higher amounts or more often than prescribed. Do not combine opioids with alcohol or other drugs that cause drowsiness, such as benzodiazepines, also known as benzos, including diazepam and alprazolam, muscle relaxants or sleep aids. Never sell or share prescription opioids. This is illegal. Store opioids in a secure place and out of reach of others (including children, family, friends and visitors). The last page of this document has been signed and retained as a CHART COPY. Signatures Patient Education Materials Medication Leaflets My discharge plan and instructions have been reviewed and explained to me and I,CODY NORTON understand my current condition and have read and understand these discharge instructions. I have received a written copy of the plan/instructions. If I have questions, I am aware that I should contact my doctor. 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 [employer] Signature: ____ Date/Time: Relationship to Patient: __ Witness Name/Signature: Date/Time: [facility] 09-30-2022 Summary of episode note CODY NORTON :1965 Visit Date:09/30/2022 Your Visit Summary Your Care Team Attending Physician - CHARLOTTE NELSON MD Primary Care Physician - KAYODE CARRASCO MD Vitals Temperature (Oral) 36.7 C Heart Rate 64 Blood Pressure 135/73 Height 160.02 cm What to do next Instructions From Your Doctor THYROGEN INJECTION Scheduled Follow-Up Appointments Appointment Type When Where Contact InformationINF Labwork 10/01/2022 09:00 AM EDT Infusion Therapy INF Injection - Other (15 min) 10/01/2022 09:15 AM EDT Infusion Therapy yyNM Inj Thyroid CA Mets Imag Full Bod 10/02/2022 10:00 AM EDT Radiology [phone] yyNM Thyroid CA Mets Image Body Scan 10/04/2022 12:30 PM EDT Radiology [phone] Medications What How Much When Instructions Unchanged cetirizine (cetirizine 10 mg oral tablet) 1 tab(s) by mouth Once a day Unchanged cholecalciferol (Vitamin D (3) 45 units oral capsule) Unchanged colestipol (colestipol 1 g oral tablet) Unchanged docusate (Colace) by mouth Once a day Unchanged herbal/ nutritional product (Probiotic) 1 by mouth Every day Unchanged levothyroxine (Synthroid 100 mcg (0.1 mg) oral tablet) 1 tab(s) by mouth Once a day Unchanged omeprazole (omeprazole 20 mg oral delayed release capsule) Unchanged pancrelipase (Zenpep 20,000 units-63,000 units-84,000 units oral delayed release capsule) Unchanged vibegron (Gemtesa 75 mg oral tablet) 1 tab(s) by mouth Once a day Allergies Latex Vicodin Additional Information VACCINATE! IT SAVES LIVES! Members of the community who have not yet received the COVID-19 vaccine and would like to receive it can visit one of [facility] vaccine clinics. There are many vaccine clinic locations within the [facility]. For locations and available times, please visit www.[email or web address] /. It is important to note that some COVID mobile vaccine clinics are held outdoors and may be canceled in rainy or stormy conditions. To learn more about pediatric vaccinations (ages 5-11), we invite you to visit the [facility] webpage. [email or web address].org/page [email or web address]-Sylol-Rdrcschgbkj-Frequently -Asked-Questions.html To learn more about the COVID-19 vaccine, we invite you to visit the CDC website for a list of frequently asked questions. https://www.cdc.gov/coronavirus/201 9-ncov/vaccines/faq.html [facility] Patient Portal Access Instructions: Stay connected with your healthcare team and access your personal medical information anytime with the [facility] Patient Portal.If you would like a full copy of your medical records, please contact the [facility] Medical Records Department, Friday through Friday between 8a.m. and 4:30p.m. Please follow the directions below to access the portal: 1.Access the email account you provided upon registration to the [facility].2.Look for an invitation email from [facility].3.Open the email and access the invitation link: Accept Invitation to [facility]4.Fill in the required knowles to create your account. Sign into [email or web address] with your username and password that you created in the above steps to stay up to date. You can then view a summary of results, a summary of your visits, and the ability to download your summaries to your computer or send the information securely to a physician. Remember that your healthcare information is confidential, so carefully consider who you will allow to register on the [facility] Patient Portal for access to your information. You can also access the [facility] Patient Portal on the [facility] ankit. Simply click on Health Records under Health Data and then click on the [facility] logo. HOW TO SAFELY DISPOSE OF PRESCRIPTION MEDICATIONS Please use one of the following methods to safely dispose of your unused medications. 1.Use a drug disposal kit: the drug disposal pouch allows you to safely discard your old and unused drugs. Ask your nurse to give you one when you are discharged.2.Visit a local take-back location: Many local pharmacies and police departments have programs that collect old and unwanted prescription drugs. Call your local pharmacy or go to http://bit.Kaleidoscope/6I9Yr1f to find one close to you.3.Make use of household items: Use cat litter or old coffee grounds to dispose medications if other options are not available. Mix your drugs with these household products, seal them in an airtight container and throw it into the garbage. Call [facility]: [phone] to be sure your drugs can be disposed of in this way. Some medicines may require a different approach.4.Never flush your medications down the toilet. IF YOU HAVE BEEN PRESCRIBED AN OPIOID FOR PAIN If you have been prescribed an opioid (such as hydrocodone, oxycodone or morphine), it is critical to understand the possible side effects and risks of opioid pain medications. Even when taken as directed, opioids can have several side effects including: Tolerance, meaning you might need to take more of a medication for the same pain relief. Nausea, vomiting and/or constipation. Sleepiness, dizziness, dry mouth, confusion, depression or itching. Physical dependence, meaning you have withdrawal symptoms when a medication is stopped, can develop within a few days. KNOW YOUR RESPONSIBILITIES It is important to know exactly how much and how often to take the opioid pain medications you are prescribed. Never take opioids in higher amounts or more often than prescribed. Do not combine opioids with alcohol or other drugs that cause drowsiness, such as benzodiazepines, also known as benzos, including diazepam and alprazolam, muscle relaxants or sleep aids. Never sell or share prescription opioids. This is illegal. Store opioids in a secure place and out of reach of others (including children, family, friends and visitors). The last page of this document has been signed and retained as a CHART COPY. Signatures Patient Education Materials Medication Leaflets My discharge plan and instructions have been reviewed and explained to me and IERROL LORETTA L understand my current condition and have read and understand these discharge instructions. I have received a written copy of the plan/instructions. If I have questions, I am aware that I should contact my doctor. 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 [employer] Signature: ____ Date/Time: Relationship to Patient: __ Witness Name/Signature: Date/Time: [facility] 08-14-2022 Evaluation + Plan note Diagnostic Tests PendingThyroglobulin, Serum with Reflex 08/14/22 [facility] 05-19-2022 Hospital Discharge instructions Patient Education 05/19/2022 13:07:26 Back Exercises, Lumbar Exercises to Strengthen Your Lower Back Strong lower back and abdominal muscles work together to support your spine. The exercises below will help strengthen the lower back. It is important that you begin exercising slowly and increase levels gradually. Always begin any exercise program with stretching. If you feel pain while doing any of these exercises, stop and talk to your doctor about a more specific exercise program that better suits your condition. Low back stretch The point of stretching is to make you more flexible and increase your range of motion. Stretch only as much as you are able. Stretch slowly. Do not push your stretch to the limit. If at any point you feel pain while stretching, this is your (temporary) limit. Lie on your back with your knees bent and both feet on the ground. Slowly raise your left knee to your chest as you flatten your lower back against the floor. Hold for 5 seconds. Relax and repeat the exercise with your right knee. Do 10 of these exercises for each leg. Repeat hugging both knees to your chest at the same time. Building lower back strength Start your exercise routine with 10 to 30 minutes a day, 1 to 3 times a day. Initial exercises Lying on your back: 1. Ankle pumps: Move your foot up and down, towards your head, and then away. Repeat 10 times with each foot. 2. Heel slides: Slowly bend your knee, drawing the heel of your foot towards you. Then slide your heel/foot from you, straightening your knee. Do not lift your foot off the floor (this is not a leg lift). 3. Abdominal contraction: Bend your knees and put your hands on your stomach. Tighten your stomach muscles. Hold for 5 seconds, then relax. Repeat 10 times. 4. Straight leg raise: Bend one leg at the knee and keep the other leg straight. Tighten your stomach muscles. Slowly lift your straight leg 6 to 12 inches off the floor and hold for up to 5 seconds. Repeat 10 times on each side. Standin. Wall squats: Stand with your back against the wall. Move your feet about 12 inches away from the wall. Tighten your stomach muscles, and slowly bend your knees until they are at about a 45 degree angle. Do not go down too far. Hold about 5 seconds. Then slowly return to your starting position. Repeat 10 times. 2. Heel raises: Stand facing the wall. Slowly raise the heels of your feet up and down, while keeping your toes on the floor. If you have trouble balancing, you can touch the wall with your hands. Repeat 10 times. More advanced exercises When you feel comfortable enough, try these exercises. 1. Kneeling lumbar extension: Begin on your hands and knees. At the same time, raise and straighten your right arm and left leg until they are parallel to the ground. Hold for 2 seconds and come back slowly to a starting position. Repeat with left arm and right leg, alternating 10 times. 2. Prone lumbar extension: Lie face down, arms extended overhead, palms on the floor. At the same time, raise your right arm and left leg as high as comfortably possible. Hold for 10 seconds and slowly return to start. Repeat with left arm and right leg, alternating 10 times. Gradually build up to 20 times. (Advanced: Repeat this exercise raising both arms and both legs a few inches off the floor at the same time. Hold for 5 seconds and release.) 3. Pelvic tilt: Lie on the floor on your back with your knees bent at 90 degrees. Your feet should be flat on the floor. Inhale, exhale, then slowly contract your abdominal muscles bringing your navel toward your spine. Let your pelvis rock back until your lower back is flat on the floor. Hold for 10 seconds while breathing smoothly. 4. Abdominal crunch: Perform a pelvic tilt (above) flattening your lower back against the floor. Holding the tension in your abdominal muscles, take another breath and raise your shoulder blades off the ground (this is not a full sit-up). Keep your head in line with your body (don t bend your neck forward). Hold for 2 seconds, then slowly lower. [id number] [employer]. [address] [place] [address], [place] [address]. All rights reserved. This information is not intended as a substitute for professional medical care. Always follow your healthcare professional's instructions. 05/19/2022 13:07:25 Back Care Tips Back Care Tips Caring for your back These are things you can do to prevent a recurrence of acute back pain and to reduce symptoms from chronic back pain: Maintain a healthy weight. If you are overweight, losing weight will help most types of back pain. Exercise is an important part of recovery from most types of back pain. The muscles behind and in front of the spine support the back. This means strengthening both the back muscles and the abdominal muscles will provide better support for your spine. Swimming and brisk walking are good overall exercises to improve your fitness level. Practice safe lifting methods (below). Practice good posture when sitting, standing and walking. Avoid prolonged sitting. This puts more stress on the lower back than standing or walking. Wear quality shoes with sufficient arch support. Foot and ankle alignment can affect back symptoms. Women should avoid wearing high heels. Therapeutic massage can help relax the back muscles without stretching them. During the first 24 to 72 hours after an acute injury or flare-up of chronic back pain, apply an ice pack to the painful area for 20 minutes and then remove it for 20 minutes, over a period of 60 to 90 minutes, or several times a day. As a safety precaution, do not use a heating pad at bedtime. Sleeping on a heating pad can lead to skin malone or tissue damage. You can alternate ice and heat therapies. Medicines Talk to your healthcare provider before using medicines, especially if you have other medical problems or are taking other medicines. You may use acetaminophen or ibuprofen to control pain, unless your healthcare provider prescribed other pain medicine. If you have chronic conditions like diabetes, liver or kidney disease, stomach ulcers, or gastrointestinal bleeding, or are taking blood thinners, talk with your healthcare provider before taking any medicines. Be careful if you are given prescription pain medicines, narcotics, or medicine for muscle spasm. They can cause drowsiness, affect your coordination, reflexes, and judgment. Do not drive or operate heavy machinery while taking these types of medicines. Take prescription pain medicine only as prescribed by your healthcare provider. Lumbar stretch Here is a simple stretching exercise that will help relax muscle spasm and keep your back more limber. If exercise makes your back pain worse, don t do it. Lie on your back with your knees bent and both feet on the ground. Slowly raise your left knee to your chest as you flatten your lower back against the floor. Hold for 5 seconds. Relax and repeat the exercise with your right knee. Do 10 of these exercises for each leg. Safe lifting method Don t bend over at the waist to lift an object off the floor. Instead, bend your knees and hips in a squat. Keep your back and head upright Hold the object close to your body, directly in front of you. Straighten your legs to lift the object. Lower the object to the floor in the reverse fashion. If you must slide something across the floor, push it. Posture tips Sitting Sit in chairs with straight backs or low-back support. Keep your knees lower than your hips, with your feet flat on the floor. When driving, sit up straight. Adjust the seat forward so you are not leaning toward the steering wheel. A small pillow or rolled towel behind your lower back may help if you are driving long distances. Standing When standing for long periods, shift most of your weight to one leg at a time. Alternate legs every few minutes. Sleeping The best way to sleep is on your side with your knees bent. Put a low pillow under your head to support your neck in a neutral spine position. Avoid thick pillows that bend your neck to one side. Put a pillow between your legs to further relax your lower back. If you sleep on your back, put pillows under your knees to support your legs in a slightly flexed position. Use a firm mattress. If your mattress sags, replace it, or use a 1/2-inch plywood board under the mattress to add support. Follow-up care Follow up with your healthcare provider, or as advised. If X-rays, a CT scan or an MRI scan were taken, they will be reviewed by a radiologist. You will be notified of any new findings that may affect your care. Call 911 Call 911 if any of the following occur: Trouble breathing Confusion Very drowsy Fainting or loss of consciousness Rapid or very slow heart rate Loss of bowel or bladder control When to seek medical advice Call your healthcare provider right away if any of the following occur: Pain becomes worse or spreads to your arms or legs Weakness or numbness in one or both arms or legs Numbness in the groin area [id number] [employer]. [address] [place] [address], [place] [address]. All rights reserved. This information is not intended as a substitute for professional medical care. Always follow your healthcare professional's instructions. 05/19/2022 13:07:23 Back and Neck Pain, General General Neck and Back Pain Both neck and back pain are usually caused by injury to the muscles or ligaments of the spine. Sometimes the disks that separate each bone of the spine may cause pain by pressing on a nearby nerve. Back and neck pain may appear after a sudden twisting or bending force (such as in a car accident), or sometimes after a simple awkward movement. In either case, muscle spasm is often present and adds to the pain. Acute neck and back pain usually gets better in 1 to 2 weeks. Pain related to disk disease, arthritis in the spinal joints or spinal stenosis (narrowing of the spinal canal) can become chronic and last for months or years. Back and neck pain are common problems. Most people feel better in 1 or 2 weeks, and most of the rest in 1 to 2 months. Most people can remain active. People have and describe pain differently. Pain can be sharp, stabbing, shooting, aching, cramping, or burning Movement, standing, bending, lifting, sitting, or walking may worsen the pain Pain can be localized to one spot or area, or it can be more generalized Pain can spread or radiate upwards, downwards, to the front, or go down your arms Muscle spasm may occur. Most of the time mechanical problems with the muscles or spine cause the pain. it is usually caused by an injury, whether known or not, to the muscles or ligaments. While illnesses can cause back pain, it is usually not caused by a serious illness. Pain is usually related to physical activity, whether sports, exercise, work, or normal activity. Sometimes it can occur without an identifiable cause. This can happen simply by stretching or moving wrong, without noting pain at the time. Other causes include: Overexertion, lifting, pushing, pulling incorrectly or too aggressively. Sudden twisting, bending or stretching from an accident (car or fall), or accidental movement. Poor posture Poor conditioning, lack of regular exercise Spinal disc disease or arthritis Stress , or illness like appendicitis, bladder or kidney infection, pelvic infections Home care For neck pain: Use a comfortable pillow that supports the head and keeps the spine in a neutral position. The position of the head should not be tilted forward or backward. When in bed, try to find a position of comfort. A firm mattress is best. Try lying flat on your back with pillows under your knees. You can also try lying on your side with your knees bent up towards your chest and a pillow between your knees. At first, do not try to stretch out the sore spots. If there is a strain, it is not like the good soreness you get after exercising without an injury. In this case, stretching may make it worse. Don't sit for long periods, as in long car rides or other travel. This puts more stress on the lower back than standing or walking. During the first 24 to 72 hours after an injury, apply an ice pack to the painful area for 20 minutes and then remove it for 20 minutes over a period of 60 to 90 minutes or several times a day. You can alternate ice and heat therapies. Talk with your healthcare provider about the best treatment for your back or neck pain. As a safety precaution, do not use a heating pad at bedtime. Sleeping with a heating pad can lead to skin malone or tissue damage. Therapeutic massage can help relax the back and neck muscles without stretching them. Be aware of safe lifting methods and do not lift anything over 15 pounds until all the pain is gone. Medicines Talk to your healthcare provider before using medicine, especially if you have other medical problems or are taking other medicines. You may use [id number] medicine to control pain, unless another pain medicine was prescribed. If you have chronic conditions like diabetes, liver or kidney disease, stomach ulcers, gastrointestinal bleeding, or are taking blood thinner medicines. Be careful if you are given pain medicines, narcotics, or medicine for muscle spasm. They can cause drowsiness, and can affect your coordination, reflexes, and judgment. Do not drive or operate heavy machinery. Follow-up care Follow up with your healthcare provider, or as advised. Physical therapy or further tests may be needed. If X-rays were taken, you will be notified of any new findings that may affect your care. Call 911 Call 911 if any of the following occur: Trouble breathing Confusion Very drowsy or trouble awakening Fainting or loss of consciousness Rapid or very slow heart rate Loss of bowel or bladder control When to seek medical advice Call your healthcare provider right away if any of these occur: Pain becomes worse or spreads into your arms or legs Weakness, numbness or pain in one or both arms or legs Numbness in the groin area Difficulty walking Fever of 100.4 F (38 C) or higher, or as directed by your healthcare provider [id number] [employer]. [address] [place] [address], [place] [address]. All rights reserved. This information is not intended as a substitute for professional medical care. Always follow your healthcare professional's instructions. Follow Up Care 05/19/2022 12:15:19 With:KAYODE CARRASCO MD Address: [facility] [address] [address] [place]. [address] [address] [phone] When:2-4 days Comments:Schedule appointment as soon as possible [facility] 05-19-2022 Note Discharge Instructions Thank you for allowing [facility] to assist you with your healthcare needs. The following is important discharge information regarding your hospital visit. Diagnosis from Today's Visit Back pain Hip pain-swelling What to Do Next Instructions from Your Care Team No qualifying data available. Post Acute Orders No qualifying data available. You Need to Schedule the Following Appointments Follow Up with KAYODE CARRASCO MD When Within 2-4 days Why: Schedule appointment as soon as possible Where: [address] [address] [phone] Allergies Latex Vicodin Medications Please ask your primary doctor or pharmacist before taking any other medication not listed, including over the counter drugs, herbal medications, vitamins and or supplements as they may interact with your home medications. What How Much When Instructions Last Dose New cyclobenzaprine (cyclobenzaprine 5 mg oral tablet) 1 tab(s) by mouth Three (3) times a day as needed for Muscle spasm Duration: 3 Days Printed Prescription New naproxen (naproxen 500 mg oral delayed release tablet) 1 tab(s) by mouth Two (2) times a day Duration: 5 Days Printed Prescription Unchanged cetirizine (cetirizine 10 mg oral tablet) 1 tab(s) by mouth Once a day Unchanged docusate (Colace) by mouth Once a day Unchanged herbal/ nutritional product (Probiotic) 1 by mouth Every day Unchanged levothyroxine (Synthroid 100 mcg (0.1 mg) oral tablet) 1 tab(s) by mouth Once a day Unchanged oxybutynin (oxybutynin 10 mg/ 24 hr oral tablet, extended release) 1 tab(s) by mouth Once a day Please take this list to your next doctor s visit. Bring all medications you take, including over the counter medications, herbals and other supplements with you to your doctor s visit. Patients and families are reminded to discard old lists and to update any records with all medication providers or retail pharmacies. Medication Leaflets naproxen (na PROX en) Aleve, Anaprox-DS, Midol Extended Relief, Naprelan 500, Naprosyn What is the most important information I should know about naproxen? Naproxen can increase your risk of fatal heart attack or stroke. Do not use this medicine just before or after heart bypass surgery (coronary artery bypass graft, or CABG). Naproxen may also cause stomach or intestinal bleeding, which can be fatal. What is naproxen? Naproxen is a nonsteroidal anti-inflammatory drug (NSAID). Naproxen is used to treat pain or inflammation caused by conditions such as arthritis, ankylosing spondylitis, tendinitis, bursitis, gout, or menstrual cramps. The delayed-release or extended-release tablets are slower-acting forms of naproxen that are used only for treating chronic conditions such as arthritis or ankylosing spondylitis. These forms of naproxen will not work fast enough to treat acute pain. Naproxen may also be used for purposes not listed in this medication guide. What should I discuss with my healthcare provider before taking naproxen? Naproxen can increase your risk of fatal heart attack or stroke, even if you don't have any risk factors. Do not use this medicine just before or after heart bypass surgery (coronary artery bypass graft, or CABG). Naproxen may also cause stomach or intestinal bleeding, which can be fatal. These conditions can occur without warning while you are using naproxen, especially in older adults. You should not use naproxen if you are allergic to it, or if you have ever had an asthma attack or severe allergic reaction after taking aspirin or an NSAID. Ask a doctor before giving naproxen to a child younger than 12 years old. Ask a doctor or pharmacist if this medicine is safe to use if you have: heart disease, high blood pressure, high cholesterol, diabetes, or if you smoke; a heart attack, stroke, or blood clot; stomach ulcers or bleeding; asthma; liver or kidney disease; fluid retention; or if you take aspirin to prevent heart attack or stroke. If you are , you should not take naproxen unless your doctor tells you to. Taking an NSAID during the last 20 weeks of can cause serious heart or kidney problems in the unborn baby and possible complications with your . It may not be safe to breastfeed while using this medicine. Ask your doctor about any risk. How should I take naproxen? Use exactly as directed on the label, or as prescribed by your doctor. Use the lowest dose that is effective in treating your condition. Shake the oral suspension (liquid) before you measure a dose. Measure a dose with the supplied measuring device (not a kitchen spoon). Take this medicine with food or milk if it upsets your stomach. Always follow directions on the medicine label about giving this medicine to a child. Naproxen doses are based on weight in children. Your child's dose needs may change if the child gains or loses weight. If you use naproxen long-term, you may need frequent medical tests. This medicine can affect the results of certain medical tests. Tell any doctor who treats you that you are using naproxen. Store at room temperature away from moisture, heat, and light. Keep the bottle tightly closed when not in use. What happens if I miss a dose? Since naproxen is used when needed, you may not be on a dosing schedule. Skip any missed dose if it's almost time for your next dose. Do not use two doses at one time. What happens if I overdose? Seek emergency medical attention or call the Poison Help line at . What should I avoid while taking naproxen? Avoid drinking alcohol. It may increase your risk of stomach bleeding. Avoid taking aspirin or other NSAIDs unless your doctor tells you to. Ask a doctor or pharmacist before using other medicines for pain, fever, swelling, or cold/flu symptoms. They may contain ingredients similar to naproxen (such as aspirin, ibuprofen, or ketoprofen). Ask your doctor before using an antacid, and use only the type your doctor recommends. Some antacids can make it harder for your body to absorb naproxen. What are the possible side effects of naproxen? Get emergency medical help if you have signs of an allergic reaction (runny or stuffy nose, wheezing or trouble breathing, hives, swelling in your face or throat) or a severe skin reaction (fever, sore throat, burning eyes, skin pain, red or purple skin rash with blistering and peeling). Stop using naproxen and seek medical treatment if you have a serious drug reaction that can affect many parts of your body. Symptoms may include skin rash, fever, swollen glands, muscle aches, severe weakness, unusual bruising, or yellowing of your skin or eyes. Get emergency medical help if you have signs of a heart attack or stroke: chest pain spreading to your jaw or shoulder, sudden numbness or weakness on one side of the body, slurred speech, leg swelling, feeling short of breath. Stop using naproxen and call your doctor at once if you have: shortness of breath (even with mild exertion); swelling or rapid weight gain; the first sign of any skin rash or blister, no matter how mild; signs of stomach bleeding--bloody or tarry stools, coughing up blood or vomit that looks like coffee grounds; liver problems--nausea, upper stomach pain, loss of appetite, dark urine, seda-colored stools, jaundice (yellowing of the skin or eyes); kidney problems--little or no urination, painful urination, swelling in your feet or ankles; or low red blood cells (anemia)--pale skin, unusual tiredness, feeling light-headed or short of breath, cold hands and feet. Common side effects may include: headache; indigestion, heartburn, stomach pain; or flu symptoms; This is not a complete list of side effects and others may occur. Call your doctor for medical advice about side effects. You may report side effects to FDA at 2-611-FCA-9918. What other drugs will affect naproxen? Ask your doctor before using naproxen if you take an antidepressant. Taking certain antidepressants with an NSAID may cause you to bruise or bleed easily. Ask a doctor or pharmacist before using naproxen with any other medications, especially: other NSAIDs or salicylates (diflunisal, salsalate); antacids and sucralfate; cholestyramine; cyclosporine; digoxin; lithium; methotrexate; pemetrexed; probenecid; warfarin (Coumadin, Jantoven) or similar blood thinners; a diuretic or 'water pill'; or heart or blood pressure medication. This list is not complete. Other drugs may affect naproxen, including prescription and [id number] medicines, vitamins, and herbal products. Not all possible drug interactions are listed here. Where can I get more information? Your pharmacist can provide more information about naproxen. Remember, keep this and all other medicines out of the reach of children, never share your medicines with others, and use this medication only for the indication prescribed. Every effort has been made to ensure that the information provided by [employer] ('[employer]') is accurate, up-to-date, and complete, but no guarantee is made to that effect. Drug information contained herein may be time sensitive. [employer] information has been compiled for use by healthcare practitioners and consumers in the [place] and therefore [employer] does not warrant that uses outside of the [place] are appropriate, unless specifically indicated otherwise. [employer] drug information does not endorse drugs, diagnose patients or recommend therapy. [employer] drug information is an informational resource designed to assist licensed healthcare practitioners in caring for their patients and/or to serve consumers viewing this service as a supplement to, and not a substitute for, the expertise, skill, knowledge and judgment of healthcare practitioners. The absence of a warning for a given drug or drug combination in no way should be construed to indicate that the drug or drug combination is safe, effective or appropriate for any given patient. [employer] does not assume any responsibility for any aspect of healthcare administered with the aid of information [employer] provides. The information contained herein is not intended to cover all possible uses, directions, precautions, warnings, drug interactions, allergic reactions, or adverse effects. If you have questions about the drugs you are taking, check with your doctor, nurse or pharmacist. Copyright [id number] [employer]. Version: .. Revision Date: 07/10/2021. cyclobenzaprine (ashkan damon) Amrix, Comfort Pac with Cyclobenzaprine, Fexmid What is the most important information I should know about cyclobenzaprine? You should not use cyclobenzaprine if you have a thyroid disorder, heart block, congestive heart failure, a heart rhythm disorder, or you have recently had a heart attack. Do not use cyclobenzaprine if you have taken an MAO inhibitor in the past 14 days, such as isocarboxazid, linezolid, phenelzine, rasagiline, selegiline, or tranylcypromine. What is cyclobenzaprine? Cyclobenzaprine is a muscle relaxant. It works by blocking nerve impulses (or pain sensations) that are sent to your brain. Cyclobenzaprine is used together with rest and physical therapy to relieve muscle spasms caused by painful conditions such as an injury. Cyclobenzaprine may also be used for purposes not listed in this medication guide. What should I discuss with my healthcare provider before taking cyclobenzaprine? You should not use cyclobenzaprine if you are allergic to it, or if you have: a thyroid disorder; heart block, heart rhythm disorder, congestive heart failure; or if you have recently had a heart attack. Cyclobenzaprine is not approved for use by anyone younger than 15 years old. Do not use cyclobenzaprine if you have taken an MAO inhibitor in the past 14 days. A dangerous drug interaction could occur. MAO inhibitors include isocarboxazid, linezolid, phenelzine, rasagiline, selegiline, and tranylcypromine. Some medicines can interact with cyclobenzaprine and cause a serious condition called serotonin syndrome. Be sure your doctor knows if you also take stimulant medicine, opioid medicine, herbal products, or medicine for depression, mental illness, Parkinson's disease, migraine headaches, serious infections, or prevention of nausea and vomiting. Ask your doctor before making any changes in how or when you take your medications. Tell your doctor if you have ever had: liver disease; glaucoma; enlarged prostate; or problems with urination. It is not known whether this medicine will harm an unborn baby. Tell your doctor if you are or plan to become . It may not be safe to breast-feed while using this medicine. Ask your doctor about any risk. Older adults may be more sensitive to the effects of this medicine. How should I take cyclobenzaprine? Follow all directions on your prescription label and read all medication guides or instruction sheets. Your doctor may occasionally change your dose. Use the medicine exactly as directed. Cyclobenzaprine is usually taken once daily for only 2 or 3 weeks. Follow your doctor's dosing instructions very carefully. Swallow the capsule whole and do not crush, chew, break, or open it. Take the medicine at the same time each day. Call your doctor if your symptoms do not improve after 3 weeks, or if they get worse. Store at room temperature away from moisture, heat, and light. What happens if I miss a dose? Take the medicine as soon as you can, but skip the missed dose if it is almost time for your next dose. Do not take two doses at one time. What happens if I overdose? Seek emergency medical attention or call the Poison Help line at . An overdose of cyclobenzaprine can be fatal. Overdose symptoms may include severe drowsiness, vomiting, fast heartbeats, tremors, agitation, or hallucinations. What should I avoid while taking cyclobenzaprine? Avoid driving or hazardous activity until you know how this medicine will affect you. Your reactions could be impaired. Avoid drinking alcohol. Dangerous side effects could occur. What are the possible side effects of cyclobenzaprine? Get emergency medical help if you have signs of an allergic reaction: hives; difficult breathing; swelling of your face, lips, tongue, or throat. Stop using cyclobenzaprine and call your doctor at once if you have: fast or irregular heartbeats; chest pain or pressure, pain spreading to your jaw or shoulder; or sudden numbness or weakness (especially on one side of the body), slurred speech, balance problems. Seek medical attention right away if you have symptoms of serotonin syndrome, such as: agitation, hallucinations, fever, sweating, shivering, fast heart rate, muscle stiffness, twitching, loss of coordination, nausea, vomiting, or diarrhea. Serious side effects may be more likely in older adults. Common side effects may include: drowsiness, tiredness; headache, dizziness; dry mouth; or upset stomach, nausea, constipation. This is not a complete list of side effects and others may occur. Call your doctor for medical advice about side effects. You may report side effects to FDA at 6-288-HMY-1248. What other drugs will affect cyclobenzaprine? Using cyclobenzaprine with other drugs that make you drowsy can worsen this effect. Ask your doctor before using opioid medication, a sleeping pill, a muscle relaxer, or medicine for anxiety or seizures. Tell your doctor about all your other medicines, especially: bupropion (Zyban, for smoking cessation); meperidine; tramadol; verapamil; cold or allergy medicine that contains an antihistamine (Benadryl and others); medicine to treat Parkinson's disease; medicine to treat excess stomach acid, stomach ulcer, motion sickness, or irritable bowel syndrome; medicine to treat overactive bladder; or bronchodilator asthma medication. This list is not complete. Other drugs may affect cyclobenzaprine, including prescription and rmdv-tqw-fcpbmba medicines, vitamins, and herbal products. Not all possible drug interactions are listed here. Where can I get more information? Your pharmacist can provide more information about cyclobenzaprine. Remember, keep this and all other medicines out of the reach of children, never share your medicines with others, and use this medication only for the indication prescribed. Every effort has been made to ensure that the information provided by [employer]. ('[employer]') is accurate, up-to-date, and complete, but no guarantee is made to that effect. Drug information contained herein may be time sensitive. [employer] information has been compiled for use by healthcare practitioners and consumers in the [place] and therefore [employer] does not warrant that uses outside of the [place] are appropriate, unless specifically indicated otherwise. [employer] drug information does not endorse drugs, diagnose patients or recommend therapy. [employer] drug information is an informational resource designed to assist licensed healthcare practitioners in caring for their patients and/or to serve consumers viewing this service as a supplement to, and not a substitute for, the expertise, skill, knowledge and judgment of healthcare practitioners. The absence of a warning for a given drug or drug combination in no way should be construed to indicate that the drug or drug combination is safe, effective or appropriate for any given patient. [employer] does not assume any responsibility for any aspect of healthcare administered with the aid of information [employer] provides. The information contained herein is not intended to cover all possible uses, directions, precautions, warnings, drug interactions, allergic reactions, or adverse effects. If you have questions about the drugs you are taking, check with your doctor, nurse or pharmacist. Copyright 6683-9810 [employer]. Version: 5.01. Revision Date: 11/26/2017. Education Materials Exercises to Strengthen Your Lower Back Strong lower back and abdominal muscles work together to support your spine. The exercises below will help strengthen the lower back. It is important that you begin exercising slowly and increase levels gradually. Always begin any exercise program with stretching. If you feel pain while doing any of these exercises, stop and talk to your doctor about a more specific exercise program that better suits your condition. Low back stretch The point of stretching is to make you more flexible and increase your range of motion. Stretch only as much as you are able. Stretch slowly. Do not push your stretch to the limit. If at any point you feel pain while stretching, this is your (temporary) limit. Lie on your back with your knees bent and both feet on the ground. Slowly raise your left knee to your chest as you flatten your lower back against the floor. Hold for 5 seconds. Relax and repeat the exercise with your right knee. Do 10 of these exercises for each leg. Repeat hugging both knees to your chest at the same time. Building lower back strength Start your exercise routine with 10 to 30 minutes a day, 1 to 3 times a day. Initial exercises Lying on your back: 1. Ankle pumps: Move your foot up and down, towards your head, and then away. Repeat 10 times with each foot. 2. Heel slides: Slowly bend your knee, drawing the heel of your foot towards you. Then slide your heel/foot from you, straightening your knee. Do not lift your foot off the floor (this is not a leg lift). 3. Abdominal contraction: Bend your knees and put your hands on your stomach. Tighten your stomach muscles. Hold for 5 seconds, then relax. Repeat 10 times. 4. Straight leg raise: Bend one leg at the knee and keep the other leg straight. Tighten your stomach muscles. Slowly lift your straight leg 6 to 12 inches off the floor and hold for up to 5 seconds. Repeat 10 times on each side. Standin. Wall squats: Stand with your back against the wall. Move your feet about 12 inches away from the wall. Tighten your stomach muscles, and slowly bend your knees until they are at about a 45 degree angle. Do not go down too far. Hold about 5 seconds. Then slowly return to your starting position. Repeat 10 times. 2. Heel raises: Stand facing the wall. Slowly raise the heels of your feet up and down, while keeping your toes on the floor. If you have trouble balancing, you can touch the wall with your hands. Repeat 10 times. More advanced exercises When you feel comfortable enough, try these exercises. 1. Kneeling lumbar extension: Begin on your hands and knees. At the same time, raise and straighten your right arm and left leg until they are parallel to the ground. Hold for 2 seconds and come back slowly to a starting position. Repeat with left arm and right leg, alternating 10 times. 2. Prone lumbar extension: Lie face down, arms extended overhead, palms on the floor. At the same time, raise your right arm and left leg as high as comfortably possible. Hold for 10 seconds and slowly return to start. Repeat with left arm and right leg, alternating 10 times. Gradually build up to 20 times. (Advanced: Repeat this exercise raising both arms and both legs a few inches off the floor at the same time. Hold for 5 seconds and release.) 3. Pelvic tilt: Lie on the floor on your back with your knees bent at 90 degrees. Your feet should be flat on the floor. Inhale, exhale, then slowly contract your abdominal muscles bringing your navel toward your spine. Let your pelvis rock back until your lower back is flat on the floor. Hold for 10 seconds while breathing smoothly. 4. Abdominal crunch: Perform a pelvic tilt (above) flattening your lower back against the floor. Holding the tension in your abdominal muscles, take another breath and raise your shoulder blades off the ground (this is not a full sit-up). Keep your head in line with your body (don t bend your neck forward). Hold for 2 seconds, then slowly lower. 4951-3181 [employer]. [address] [place], [place] [id number]. All rights reserved. This information is not intended as a substitute for professional medical care. Always follow your healthcare professional's instructions. Back Care Tips Caring for your back These are things you can do to prevent a recurrence of acute back pain and to reduce symptoms from chronic back pain: Maintain a healthy weight. If you are overweight, losing weight will help most types of back pain. Exercise is an important part of recovery from most types of back pain. The muscles behind and in front of the spine support the back. This means strengthening both the back muscles and the abdominal muscles will provide better support for your spine. Swimming and brisk walking are good overall exercises to improve your fitness level. Practice safe lifting methods (below). Practice good posture when sitting, standing and walking. Avoid prolonged sitting. This puts more stress on the lower back than standing or walking. Wear quality shoes with sufficient arch support. Foot and ankle alignment can affect back symptoms. Women should avoid wearing high heels. Therapeutic massage can help relax the back muscles without stretching them. During the first 24 to 72 hours after an acute injury or flare-up of chronic back pain, apply an ice pack to the painful area for 20 minutes and then remove it for 20 minutes, over a period of 60 to 90 minutes, or several times a day. As a safety precaution, do not use a heating pad at bedtime. Sleeping on a heating pad can lead to skin malone or tissue damage. You can alternate ice and heat therapies. Medicines Talk to your healthcare provider before using medicines, especially if you have other medical problems or are taking other medicines. You may use acetaminophen or ibuprofen to control pain, unless your healthcare provider prescribed other pain medicine. If you have chronic conditions like diabetes, liver or kidney disease, stomach ulcers, or gastrointestinal bleeding, or are taking blood thinners, talk with your healthcare provider before taking any medicines. Be careful if you are given prescription pain medicines, narcotics, or medicine for muscle spasm. They can cause drowsiness, affect your coordination, reflexes, and judgment. Do not drive or operate heavy machinery while taking these types of medicines. Take prescription pain medicine only as prescribed by your healthcare provider. Lumbar stretch Here is a simple stretching exercise that will help relax muscle spasm and keep your back more limber. If exercise makes your back pain worse, don t do it. Lie on your back with your knees bent and both feet on the ground. Slowly raise your left knee to your chest as you flatten your lower back against the floor. Hold for 5 seconds. Relax and repeat the exercise with your right knee. Do 10 of these exercises for each leg. Safe lifting method Don t bend over at the waist to lift an object off the floor. Instead, bend your knees and hips in a squat. Keep your back and head upright Hold the object close to your body, directly in front of you. Straighten your legs to lift the object. Lower the object to the floor in the reverse fashion. If you must slide something across the floor, push it. Posture tips Sitting Sit in chairs with straight backs or low-back support. Keep your knees lower than your hips, with your feet flat on the floor. When driving, sit up straight. Adjust the seat forward so you are not leaning toward the steering wheel. A small pillow or rolled towel behind your lower back may help if you are driving long distances. Standing When standing for long periods, shift most of your weight to one leg at a time. Alternate legs every few minutes. Sleeping The best way to sleep is on your side with your knees bent. Put a low pillow under your head to support your neck in a neutral spine position. Avoid thick pillows that bend your neck to one side. Put a pillow between your legs to further relax your lower back. If you sleep on your back, put pillows under your knees to support your legs in a slightly flexed position. Use a firm mattress. If your mattress sags, replace it, or use a 1/2-inch plywood board under the mattress to add support. Follow-up care Follow up with your healthcare provider, or as advised. If X-rays, a CT scan or an MRI scan were taken, they will be reviewed by a radiologist. You will be notified of any new findings that may affect your care. Call 911 Call 911 if any of the following occur: Trouble breathing Confusion Very drowsy Fainting or loss of consciousness Rapid or very slow heart rate Loss of bowel or bladder control When to seek medical advice Call your healthcare provider right away if any of the following occur: Pain becomes worse or spreads to your arms or legs Weakness or numbness in one or both arms or legs Numbness in the groin area [id number] [employer]. [address] [place], [place] [id number]. All rights reserved. This information is not intended as a substitute for professional medical care. Always follow your healthcare professional's instructions. General Neck and Back Pain Both neck and back pain are usually caused by injury to the muscles or ligaments of the spine. Sometimes the disks that separate each bone of the spine may cause pain by pressing on a nearby nerve. Back and neck pain may appear after a sudden twisting or bending force (such as in a car accident), or sometimes after a simple awkward movement. In either case, muscle spasm is often present and adds to the pain. Acute neck and back pain usually gets better in 1 to 2 weeks. Pain related to disk disease, arthritis in the spinal joints or spinal stenosis (narrowing of the spinal canal) can become chronic and last for months or years. Back and neck pain are common problems. Most people feel better in 1 or 2 weeks, and most of the rest in 1 to 2 months. Most people can remain active. People have and describe pain differently. Pain can be sharp, stabbing, shooting, aching, cramping, or burning Movement, standing, bending, lifting, sitting, or walking may worsen the pain Pain can be localized to one spot or area, or it can be more generalized Pain can spread or radiate upwards, downwards, to the front, or go down your arms Muscle spasm may occur. Most of the time mechanical problems with the muscles or spine cause the pain. it is usually caused by an injury, whether known or not, to the muscles or ligaments. While illnesses can cause back pain, it is usually not caused by a serious illness. Pain is usually related to physical activity, whether sports, exercise, work, or normal activity. Sometimes it can occur without an identifiable cause. This can happen simply by stretching or moving wrong, without noting pain at the time. Other causes include: Overexertion, lifting, pushing, pulling incorrectly or too aggressively. Sudden twisting, bending or stretching from an accident (car or fall), or accidental movement. Poor posture Poor conditioning, lack of regular exercise Spinal disc disease or arthritis Stress , or illness like appendicitis, bladder or kidney infection, pelvic infections Home care For neck pain: Use a comfortable pillow that supports the head and keeps the spine in a neutral position. The position of the head should not be tilted forward or backward. When in bed, try to find a position of comfort. A firm mattress is best. Try lying flat on your back with pillows under your knees. You can also try lying on your side with your knees bent up towards your chest and a pillow between your knees. At first, do not try to stretch out the sore spots. If there is a strain, it is not like the good soreness you get after exercising without an injury. In this case, stretching may make it worse. Don't sit for long periods, as in long car rides or other travel. This puts more stress on the lower back than standing or walking. During the first 24 to 72 hours after an injury, apply an ice pack to the painful area for 20 minutes and then remove it for 20 minutes over a period of 60 to 90 minutes or several times a day. You can alternate ice and heat therapies. Talk with your healthcare provider about the best treatment for your back or neck pain. As a safety precaution, do not use a heating pad at bedtime. Sleeping with a heating pad can lead to skin malone or tissue damage. Therapeutic massage can help relax the back and neck muscles without stretching them. Be aware of safe lifting methods and do not lift anything over 15 pounds until all the pain is gone. Medicines Talk to your healthcare provider before using medicine, especially if you have other medical problems or are taking other medicines. You may use rjhz-xsi-klzctoe medicine to control pain, unless another pain medicine was prescribed. If you have chronic conditions like diabetes, liver or kidney disease, stomach ulcers, gastrointestinal bleeding, or are taking blood thinner medicines. Be careful if you are given pain medicines, narcotics, or medicine for muscle spasm. They can cause drowsiness, and can affect your coordination, reflexes, and judgment. Do not drive or operate heavy machinery. Follow-up care Follow up with your healthcare provider, or as advised. Physical therapy or further tests may be needed. If X-rays were taken, you will be notified of any new findings that may affect your care. Call 911 Call 911 if any of the following occur: Trouble breathing Confusion Very drowsy or trouble awakening Fainting or loss of consciousness Rapid or very slow heart rate Loss of bowel or bladder control When to seek medical advice Call your healthcare provider right away if any of these occur: Pain becomes worse or spreads into your arms or legs Weakness, numbness or pain in one or both arms or legs Numbness in the groin area Difficulty walking Fever of 100.4 F (38 C) or higher, or as directed by your healthcare provider [id number] [employer]. [address] [place], [place] [id number]. All rights reserved. This information is not intended as a substitute for professional medical care. Always follow your healthcare professional's instructions. Additional Information VACCINATE! IT SAVES LIVES! Members of the community who have not yet received the COVID-19 vaccine and would like to receive it can visit one of [facility] vaccine clinics. There are many vaccine clinic locations within the [facility]. For locations and available times, please visit [email or web address] /. It is important to note that some COVID mobile vaccine clinics are held outdoors and may be canceled in rainy or stormy conditions. To learn more about pediatric vaccinations (ages 5-11), we invite you to visit the [facility] webpage. [email or web address] To learn more about the COVID-19 vaccine, we invite you to visit the CDC website for a list of frequently asked questions. https://www.cdc.gov/coronavirus/201 9-ncov/vaccines/faq.html [facility] Patient Portal Access Instructions: Stay connected with your healthcare team and access your personal medical information anytime with the [facility] Patient Portal. If you would like a full copy of your medical records please contact the [facility] Medical Records Department Friday through Friday between 8a.m. and 4:30p.m. Please follow the directions below to access the portal: 1.Access the email account you provided upon registration to the [facility].2.Look for an invitation email from [facility].3.Open the email and access the invitation link: Accept Invitation to [facility].Fill in the required knowles to create your account. Sign into [email or web address] with your username and password that you created in the above steps to stay up to date. You can then view a summary of results, a summary of your visits, and the ability to download your summaries to your computer or send the information securely to a physician. Remember that your healthcare information is confidential, so carefully consider who you will allow to register on the [facility] Patient Portal for access to your information. You can also access the [facility] Patient Portal on the [employer] ankit. Simply click on Health Records under Health Data and then click on the [employer] logo. HOW TO SAFELY DISPOSE OF PRESCRIPTION MEDICATIONS Please use one of the following methods to safely dispose of your unused medications. 1.Use a drug disposal kit: the drug disposal pouch allows you to safely discard your old and unused drugs. Ask your nurse to give you one when you are discharged.2.Visit a local take-back location: Many local pharmacies and police departments have programs that collect old and unwanted prescription drugs. Call your local pharmacy or go to http://bit.Kaleidoscope/8B5Ol0v to find one close to you.3.Make use of household items: Use cat litter or old coffee grounds to dispose medications if other options are not available. Mix your drugs with these household products, seal them in an airtight container and throw it into the garbage. Call [facility]: [phone] to be sure your drugs can be disposed of in this way. Some medicines may require a different approach.4.Never flush your medications down the toilet. IF YOU HAVE BEEN PRESCRIBED AN OPIOIDS FOR PAIN If you have been prescribed an opioid (such as hydrocodone, oxycodone or morphine), it is critical to understand the possible side effects and risks of opioid pain medications. Even when taken as directed, opioids can have several side effects including: Tolerance, meaning you might need to take more of a medication for the same pain relief. Nausea, vomiting and/or constipation. Sleepiness, dizziness, dry mouth, confusion, depression or itching. Physical dependence, meaning you have withdrawal symptoms when a medication is stopped ? this can develop within a few days. KNOW YOUR RESPONSIBILITIES It is important to know exactly how much and how often to take the opioid pain medications you are prescribed. Never take opioids in higher amounts or more often than prescribed. Do not combine opioids with alcohol or other drugs that cause drowsiness, such as benzodiazepines, also known as benzos, including diazepam and alprazolam, muscle relaxants or sleep aids. Never sell or share prescription opioids. This is illegal. Store opioids in a secure place and out of reach of others (including children, family, friends and visitors). The last page(s) of this document has been signed and retained as a CHART COPY Signatures Patient Education Materials Back Exercises, Lumbar Back Care Tips Back and Neck Pain, General Medication Leaflets naproxen, cyclobenzaprine My discharge plan and instructions have been reviewed and explained to me and IERROL LORETTA L understand my current condition and have read and understand these discharge instructions. I have received a written copy of the plan/instructions. If I have questions, I am aware that I should contact my doctor. 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 [employer] Signature: ____ Date/Time: Relationship to Patient: __ Witness Name/Signature: Date/Time: [facility] 03-25-2022 Evaluation + Plan note Diagnostic Tests PendingMISC Lab Send out (Blood Specimens) 03/25/22 [facility] 02-13-2022 Evaluation + Plan note Diagnostic Tests PendingMISC Lab Send out (Blood Specimens) 02/13/22 [facility] 08-15-2021 Evaluation + Plan note Diagnostic Tests PendingThyroglobulin 08/15/21 [facility] Evaluation + Plan note Future Appointments Appointment Date:10/01/2022 09:00:00 AM Scheduled Provider: Location:INF Appointment Type:INF Labwork Appointment Date:10/01/2022 09:15:00 AM Scheduled Provider: Location:INF Appointment Type:INF Injection - Other (15 min) Appointment Date:10/02/2022 10:00:00 AM Scheduled Provider: Location:XRAY Appointment Type:yyNM Inj Thyroid CA Mets Imag Full Bod Appointment Date:10/04/2022 12:30:00 PM Scheduled Provider: Location:XRAY Appointment Type:yyNM Thyroid CA Mets Image Body Scan Future Scheduled TestsNM Thyroid CA Mets Imaging Whole Body 10/04/22 [facility] Evaluation + Plan note Future Appointments Appointment Date:10/02/2022 10:00:00 AM Scheduled Provider: Location:XRAY Appointment Type:yyNM Inj Thyroid CA Mets Imag Full Bod Appointment Date:10/04/2022 12:30:00 PM Scheduled Provider: Location:XRAY Appointment Type:yyNM Thyroid CA Mets Image Body Scan Future Scheduled TestsNM Thyroid CA Mets Imaging Whole Body 10/04/22 [facility] Hospital course Narrative No data available for this section [facility] Hospital Discharge instructions No data available for this section [facility] Progress note No data available for this section [facility] Summary Purpose Family History No Family History Records Found Advance Directives No Advanced Directives Records Found Additional Source Comments Care Team (unrecognized sect ion and content) Personnel Name: KAYODE CARRASCO MD Address: [address] [place] [address] Care Team Personnel Name: KAYODE CARRASCO MD Member Role: Primary Care Physician Address: Address: [address] [place] [address] [address] [place] [address]- Name: KIEL FRY MD Position: ED Physician Member Role: ED Physician Address: Address: [address] [place] [address].[address] Name: AKIN BARRIOS DO Position: Resident Member Role: Resident Address: Address: [address] [place] [address] [place] [address]- Care Team Related Persons Name: KIRA NORTON Name: KIRA NORTON Care Team Personnel Name: KAYODE CARRASCO MD Member Role: Primary Care Physician Address: Address: [address] [place] [address] Care Team Related Persons Name: KIRA NORTON Name: KIRA NORTON Care Team Personnel Name: KAYODE CARRASCO MD Member Role: Primary Care Physician Address: Address: [address] [place] [address] Care Team Related Persons Name: KIRA NORTON Name: KIRA NORTON Care Team Personnel Name: KAYODE CARRASCO MD Member Role: Primary Care Physician Address: Address: [address] [place] [address] [address] [place] [id number] Name: Annetta Mckeon RN Position: flanger Member Role: RN Care Team Related Persons Name: KIRA NORTON Name: KIRA NORTON Care Team (unrecognized sect ion and content) Care Team Personnel Name: KAYODE CARRASCO MD Member Role: Primary Care Physician Address: Address: [address] [place] [address] [address] [place] [id number] Care Team Related Persons Name: KIRA NORTON Name: KIRA NORTON Care Team Personnel Name: KAYODE CARRASCO MD Member Role: Primary Care Physician Address: Address: [facility] [place] [address]- Care Team Related Persons Name: KIRA NORTON Name: KIRA NORTON Care Team Personnel Name: KAYODE CARRASCO MD Member Role: Primary Care Physician Address: Address: [facility] [place] [address]- Care Team Related Persons Name: KIRA NORTON Name: KIRA NORTON INFORMATION SOURCE (unrecogn ized section and content) FOR RECORDS PERTAINING TO PATIENTS WHO ARE OR HAVE BEEN ENROLLED IN A CHEMICAL DEPENDENCY/SUBSTANCEABUSE PROGRAM, SOME INFORMATION MAY BE OMITTED. This clinical summary was aggregated from multiple sources. Caution should be exercised in using it in the provision of clinical care. This summary normalizes information from multiple sources, and as a consequence, information in this document may materially change the coding, format and clinical context of patient data. In addition, data may be omitted in some cases. CLINICAL DECISIONS SHOULD BE BASED ON THE PRIMARY CLINICAL RECORDS. [facility] [employer] [facility]. provides no warranty or guarantee of the accuracy or completeness of information in this document.
[2023-05-07 00:06] LABS: Calprotectin, Stool 433 ug/g (0-120)
== END | disposition home or self-care (01) ==
LOC: LAB 12:42
PROVIDERS: PCP Family Medicine; Referring Provider Internal Medicine Gastroenterology; Visit Provider Internal Medicine Gastroenterology
DX: K50.90 Crohn's disease, unspecified, without complications (principal)
CPT/HCPCS: 83630; 83993

== ENCOUNTER → 2023-11-18 | Outpatient (CLI) | payer MEDICARE, MEDICAID, SELFPAY ==
--- NOTE | 2023-11-18 15:15 | BI_ITS ---
MAMMOGRAPHY - BILATERAL SCREENING REASON FOR EXAM: Female, 57 years old. Routine annual screening examination. PERTINENT HISTORY: Non-contributory. TECHNIQUE: Digital bilateral breast eduar (3D mammographic acquisition) in the CC and MLO projections. 2-D mediolateral oblique (MLO) and craniocaudad (CC) views of both breasts were obtained. CAD: Full Field Digital Mammography with Computer Added Detection was performed. COMPARISON: Comparison is made with prior study dated September 22, 2018. FINDINGS: Breast Composition: There are scattered areas of fibroglandular density. There are no dominant masses or suspicious calcifications. Stable small benign appearing bilateral axillary nodes. No other significant abnormalities are identified. There has been no significant change since the prior study. BI/SCRN MAMM (CAD)W/EDUAR BILAT IMPRESSION: Stable bilateral screening mammogram. Yearly follow-up mammogram recommended. (A) ASSESSMENT CATEGORY: BIRADS Category 2: Benign. A letter regarding these results will be sent to the patient by the facility within 30 days. Approximately 10% of breast cancers are not detected by mammography. A normal mammogram should not delay biopsy of a clinically suspicious abnormality. [id number] Electronically Signed: Brigido Gomez MD at 8:23 EDT ,
== END | disposition home or self-care (01) ==
LOC: OPBI 15:15
PROVIDERS: PCP Family Medicine; Referring Provider Family Medicine; Visit Provider Family Medicine
DX: Z12.31 Encounter for screening mammogram for malignant neoplasm of breast (principal)
CPT/HCPCS: 77063; 77067

== ENCOUNTER → 2024-04-05 | Outpatient (CLI) | payer MEDICARE, MEDICAID, SELFPAY ==
[2024-04-05 17:34] LABS: Absolute Lymphocyte Count 2.38 X10^3/uL (0.83-4.51); Absolute Neutrophil Count 4.3 X10^3/uL (2.0-7.7); Basophil# 0.08 X10^3/uL; Basophil% 1.1 % (0-1); Eosinophil# 0.09 X10^3/uL; Eosinophils% 1.2 % (0-5); Hematocrit 37.6 % (37-47); Hemoglobin 12.3 g/dL (12.0-15.0); Lymphocyte # 2.38 X10^3/ul (0.83-4.51); Lymphocyte % 32.5 % (19-41); Mean Corp Hgb Conc 32.7 g/dL (32-36); Mean Corpuscular Hgb 30.1 pg (27.0-32.0); Mean Corpuscular Volume 91.9 fL (81-99); Monocyte# 0.48 X10^3/uL; Monocyte% 6.5 % (0-10); NRBC Flagged by Analyzer 0 % (0-5); Neutrophil # 4.28 X10^3/uL (2.7-7.7); Neutrophil % 58.4 % (47-70); Platelet Count 214 K/mm3 (150-450); RBC Distribution Width CV 13.7 % (11.6-14.6); RBC Distribution Width SD 45.9 fl (35.1-43.9); Red Blood Count 4.09 M/mm3 (4.2-5.4); White Blood Count 7.3 K/mm3 (4.4-11.0)
[2024-04-05 17:59] LABS: Erythrocyte Sedimentation Rate 13 mm/hr (0-30)
[2024-04-05 18:18] LABS: ALB/GLOB Ratio 0.9 RATIO (0.9-2.4); AST(SGOT) 24 U/L (15-37); Alanine Aminotransfer ALT/SGPT 27 U/L (13-56); Albumin, Serum 3.8 g/dL (3.2-5.0); Alkaline Phosphatase 91 U/L (45-117); Amylase 73 U/L (25-115); Anion Gap 6 (5-15); BUN 14 mg/dL (7-18); BUN/Creat Ratio 20.1 RATIO (10-20); CRP 6.85 mg/L (0.0-3.0); Calcium,Total 8.7 mg/dL (8.5-10.1); Chloride 107 mmol/L (98-107); EST Glomerular Filtration Rate 92 mL/min (>60); Est Glom Filt Rate - Afr Amer 111 mL/min (>60); Globulin 4.1 g/dL (2.2-4.2); Glucose 98 mg/dL (74-106); LDH 225 U/L (84-246); Lipase 33 U/L (13-75); Potassium 3.4 mmol/L (3.5-5.1); Protein, Total 7.9 g/dL (6.4-8.2); Sodium Level 141 mmol/L (136-145)
[2024-04-05 18:38] LABS: T4 Free Direct 1.09 ng/dL (0.76-1.46); Thyroid Stim Hormone (TSH) 0.044 uIU/mL (0.358-3.740)
[2024-04-07 17:07] LABS: Anti-Thyroglobulin AB < 1.0 IU/mL (0.0-0.9); Thyroglobulin, Serum Qt. 0.1 ng/mL (1.5-38.5)
[2024-04-08 19:07] LABS: QNTFERON TB Mitogen Value 6.36 IU/mL (.); QNTFERON TB Nil Value 0 IU/mL (.); QNTFERON TB1+ Ag Value 0.01 IU/mL (.); QNTFERON TB2+ Ag Value 0.02 IU/mL (.); QNTIFERON TB Positive Criteria Negative (Negative)
== END | disposition home or self-care (01) ==
PROVIDERS: PCP Family Medicine; Referring Provider Internal Medicine Gastroenterology; Visit Provider Internal Medicine Endocrinology, Diabetes & Metabolism
DX: K50.00 Crohn's disease of small intestine without complications (principal); C73 Malignant neoplasm of thyroid gland; D64.9 Anemia, unspecified; E89.0 Postprocedural hypothyroidism
CPT/HCPCS: 36415; 80053; 82150; 83615; 83690; 84432; 84439; 84443; 85025; 85652; 86140; 86480; 86800

== ENCOUNTER → 2024-04-13 | Outpatient (CLI) | payer MEDICARE, MEDICAID, SELFPAY ==
--- NOTE | 2024-04-13 13:29 | RAD_ITS ---
EXAM: XR Left Knee Complete, 4 or More Views CLINICAL INDICATION: TECHNIQUE: Four or more views of the left knee. COMPARISON: No relevant prior studies available. FINDINGS: BONES/JOINTS: Unremarkable. No acute fracture. No dislocation. SOFT TISSUES: Unremarkable. RAD/Knee 4 or More Views IMPRESSION: No acute fracture. Reading [facility]
== END | disposition home or self-care (01) ==
LOC: MTRAD 13:29
PROVIDERS: PCP Family Medicine; Referring Provider Family Medicine; Visit Provider Family Medicine
DX: M25.562 Pain in left knee (principal)
CPT/HCPCS: 73564

== ENCOUNTER → 2024-09-23 | Outpatient (CLI) | payer MEDICARE, MEDICAID, SELFPAY ==
[2024-09-23 17:39] LABS: Hematocrit 35.9 % (37-47); Hemoglobin 11.9 g/dL (12.0-15.0); Immature Granulocytes Count 0.020 X10^3/uL (0.0-0.0); Mean Corp Hgb Conc 33.1 g/dL (32-36); Mean Corpuscular Volume 91.3 fL (81-99); Mean Platelet Vol. 12.2 fl (6.2-12.0); NRBC Flagged by Analyzer 0 % (0-5); Platelet Count 191 K/mm3 (150-450); RBC Distribution Width CV 13.4 % (11.6-14.6); RBC Distribution Width SD 45.3 fl (35.1-43.9); Red Blood Count 3.93 M/mm3 (4.2-5.4); White Blood Count 6.0 K/mm3 (4.4-11.0)
[2024-09-23 18:18] LABS: AST(SGOT) 24 U/L (<=31); Alanine Aminotransfer ALT/SGPT 19 U/L (<=34); Albumin, Serum 4.2 g/dL (3.5-5.0); Alkaline Phosphatase 67 U/L (35-104); Anion Gap 12 (5-15); BUN 14 mg/dL (4-19); BUN/Creat Ratio 19.9 RATIO (10-20); Calcium,Total 9.2 mg/dL (7.6-11.0); Carbon Dioxide 24.9 mmol/L (21.0-32.0); Chloride 104 mmol/L (98-108); Cholesterol 172 mg/dL (<=200); Globulin 3.2 g/dL (2.2-4.2); Glucose 123 mg/dL (70-99); Low Density Lipoprotein Calc. 107 mg/dL; Potassium 4.0 mmol/L (3.3-5.1); Triglycerides 98 mg/dL; Very Low Density Lipoprotein 20 mg/dL (5-40); cholesterol:hdl ratio screen 3.81
[2024-09-24 12:02] LABS: Ferritin 119 ng/mL (22-378); Iron 44 ug/dL (50-170); Iron Binding Capacity,Total 284 ug/dL (250-450); Iron Binding Capacity,Unsat 240 ug/dL (228-428); Vitamin B12 843 pg/mL (180-914)
== END | disposition home or self-care (01) ==
LOC: MFPLAB 15:35
PROVIDERS: PCP Family Medicine; Referring Provider Family Medicine; Visit Provider Family Medicine
DX: D64.9 Anemia, unspecified (principal); E66.9 Obesity, unspecified
CPT/HCPCS: 36415; 80053; 80061; 82607; 82728; 83036; 83540; 83550; 85025

== ENCOUNTER → 2024-12-01 | Outpatient (CLI) | payer MEDICARE, MEDICAID, SELFPAY ==
--- NOTE | 2024-12-01 16:33 | RAD_ITS ---
PROCEDURE: FOOT MIN 3 VIEWS 12/01/2024 REASON FOR EXAM: PAIN TECHNIQUE: Procedure Code: RADFO Modality: DX Procedure: FOOT MIN 3 VIEWS Laterality: Left COMPARISON: November 15, 2021 FINDINGS: Bones: Calcaneal spur is present. No acute fracture. Deformity from old, healed fracture involving the distal fibula is seen with bridging seen between the tibia and fibula and also between the fragments of the fibula. Nondisplaced fracture at the junction of the metaphysis and diaphysis involving the proximal portion proximal phalanx 5th digit. Minimal dorsal angulation. Joints: Normal alignment. Soft tissues: Soft tissues are unremarkable. RAD/Foot min 3 Views IMPRESSION: Nondisplaced fracture proximal phalanx 5th digit. Reading Location: [id number]
--- NOTE | 2024-12-01 16:33 | RAD_ITS ---
PROCEDURE: FOOT MIN 3 VIEWS 12/01/2024 REASON FOR EXAM: PAIN TECHNIQUE: Procedure Code: RADFO Modality: DX Procedure: FOOT MIN 3 VIEWS Laterality: Left COMPARISON: November 15, 2021 FINDINGS: Bones: Calcaneal spur is present. No acute fracture. Deformity from old, healed fracture involving the distal fibula is seen with bridging seen between the tibia and fibula and also between the fragments of the fibula. Nondisplaced fracture at the junction of the metaphysis and diaphysis involving the proximal portion proximal phalanx 5th digit. Minimal dorsal angulation. Joints: Normal alignment. Soft tissues: Soft tissues are unremarkable. RAD/Foot min 3 Views IMPRESSION: Nondisplaced fracture proximal phalanx 5th digit. Reading Location: [id number]
== END | disposition home or self-care (01) ==
LOC: MTRAD 16:32
PROVIDERS: PCP Family Medicine
DX: S92.515A Nondisplaced fracture of proximal phalanx of left lesser toe(s), initial encounter for closed fracture (principal); X58.XXXA Exposure to other specified factors, initial encounter
CPT/HCPCS: 73630